=== PATIENT | male | born 1950 | race Caucasian/White ===

== ENCOUNTER 2018-11-04 13:56 | Inpatient (IN) | payer MEDICARE, OTHER ==
[~2018-11-04] VITALS: Ht 185.4 cm; Wt 90.1 kg
[2018-11-04] MEDS ORDERED: CLINDAMYCIN 900 MG/D5W (PMX) 50 ML IVPB STA (16:58)
[2018-11-04] MEDS ORDERED: SODIUM CHLORIDE 0.9% 1L BAG IV* STA (16:58)
[2018-11-04] MEDS ORDERED: ACETAMINOPHEN 325 MG TAB PO STA (16:58)
[2018-11-04] MEDS ORDERED: morphine 4 MG/ML VIAL IV STA (16:58)
[2018-11-04] MEDS ORDERED: ONDANSETRON 4 MG INJ IV STA (16:58)
[2018-11-04] MEDS ORDERED: PIPER-TAZO 3.375 GM IV (PMX) 100 ML IVPB STA (16:58)
[2018-11-04] MEDS ORDERED: VANCOMYCIN 1 GM (PMX) 250 ML IVPB STA (16:58)
--- NOTE | 2018-11-04 17:40 | ERD ---
ER Documentation Chief Complaint Chief Complaint RIGHT LEG SWELLING SINCE FRIDAY, FEVER HPI Very pleasant 68-year-old diabetic male who presents to the emergency room with approximately 5 days of right lower extremity swelling erythema warmth and tenderness. Pain is moderate, throbbing and 5 out of 10. He denies fevers but does have a fever here. No recent trauma or injury. No chest pain or pleuritic pain or history of DVT. ROS All systems reviewed and are negative except as per history of present illness. Medications Home Meds Reported Medications Lisinopril* (Lisinopril*) 40 Mg Tablet, 40 MG PO DAILY, #30 TAB 11/04/18 Sitagliptin Phos/Metformin HCl (Janumet 50-1,000 mg Tablet) 1 Each Tablet, 1 EACH PO BID, TAB 11/04/18 Allergies Allergies: Uncoded Allergies: OKRA (Allergy, Unknown, 11/04/18) FmHx Family History: No diabetes Physical Exam Vitals Vital Signs Date Temp Pulse Resp B/P (MAP) Pulse Ox O2 O2 Flow FiO2 Time Delivery Rate 11/04/18 99.9 63 21 108/51 97 Room Air 18:59 (70) 11/04/18 101.0 17:35 11/04/18 101.0 83 25 146/67 97 14:02 (93) Physical Exam General: Well developed, well nourished, no acute distress Head: Normocephalic, atraumatic. Eyes: Pupils equally reactive, EOM intact ENT: Moist mucous membranes Neck: Supple, no lymphadenopathy Respiratory: Lungs clear bilaterally, no distress Cardiovascular: RRR, no murmurs, rubs, or gallops Abdominal: Soft, non-tender, non-distended, no peritoneal signs : Deferred MSK: Right lower extremity has unilateral swelling erythema warmth and tenderness with streaking to the medial aspect of the right knee. 2+ dorsalis pedis pulses. No crepitus noted. No bullae. Neurologic: Alert and oriented, moving all extremities, normal speech, no focal weakness, no cerebellar signs Skin: As noted above Psych: Normal mood Result Diagram: 11/04/18 1700 11/04/18 1700 Results 24 hrs Laboratory Tests Test 11/04/18 17:00 11/04/18 17:19 White Blood Count 17.6 10^3/ul Red Blood Count 4.60 10^6/ul Hemoglobin 14.7 g/dl Hematocrit 43.0 % Mean Corpuscular Volume 93.5 fl Mean Corpuscular Hemoglobin 32.0 pg Mean Corpuscular Hemoglobin Concent 34.2 g/dl Red Cell Distribution Width 14.3 % Platelet Count 138 10^3/UL Mean Platelet Volume 13.1 fl Immature Granulocytes % 0.800 % Neutrophils % 85.1 % Lymphocytes % 4.4 % Monocytes % 9.0 % Eosinophils % 0.2 % Basophils % 0.5 % Nucleated Red Blood Cells % 0.0 /100WBC Immature Granulocytes # 0.140 10^3/ul Neutrophils # 15.0 10^3/ul Lymphocytes # 0.8 10^3/ul Monocytes # 1.6 10^3/ul Eosinophils # 0.0 10^3/ul Basophils # 0.1 10^3/ul Nucleated Red Blood Cells # 0.0 10^3/ul Erythrocyte Sedimentation Rate 69 mm/Hr Sodium Level 137 mmol/L Potassium Level 4.1 mmol/L Chloride Level 103 mmol/L Carbon Dioxide Level 22 mmol/L Anion Gap 12 Blood Urea Nitrogen 26 mg/dl Creatinine 1.02 mg/dl Est Glomerular Filtrat Rate mL/min > 60 mL/min Glucose Level 227 mg/dl Calcium Level 8.3 mg/dl C-Reactive Protein 8.4 mg/dl POC Venous Lactate 2.9 mmol/L Current Medications Medications Dose Sig/Forrest Start Time Status Last (Trade) Ordered Route PRN Stop Time Admin Dose Reason Admin Sodium 2,660 ml BOLUS OVER 2 11/04/18 DC 11/04/18 Chloride HOURS STAT 16:58 17:24 (NS) IV* 11/04/18 17:01 650 mg ONCE STAT 11/04/18 DC 11/04/18 Acetaminophen PO 16:58 17:35 (Tylenol 11/04/18 17:01 Tab) Morphine 4 mg ONCE STAT 11/04/18 DC 11/04/18 Sulfate IV 16:58 17:24 (morphine) 11/04/18 17:01 Ondansetron 4 mg ONCE STAT 11/04/18 DC 11/04/18 HCl (Zofran IV 16:58 17:23 Inj) 11/04/18 17:01 Vancomycin 250 ml @ ONCE STAT 11/04/18 DC 11/04/18 HCl 125 mls/hr IVPB 16:58 18:56 11/04/18 18:57 Clindamycin 50 ml @ 50 ONCE STAT 11/04/18 DC 11/04/18 HCl/ mls/hr IVPB 16:58 18:04 Dextrose 11/04/18 17:57 Piperacillin 100 ml @ ONCE STAT 11/04/18 DC 11/04/18 Sod/ 200 mls/hr IVPB 16:58 17:24 Tazobactam 11/04/18 17:27 Sod Ondansetron 4 mg BRIDGE ORDER 11/04/18 HCl (Zofran PRN IV 18:30 Inj) NAUSEA/VOMITI 11/05/18 18:29 NG 650 mg ER BRIDGE 11/04/18 Acetaminophen PRN PO 18:30 (Tylenol .MILD PAIN 11/05/18 18:29 Tab) 1-3 OR TEMP Lisinopril 40 mg DAILY PO 11/05/18 (Zestril) 09:00 Sodium 1,000 ml @ Q10H IV 11/04/18 Chloride 100 mls/hr 18:28 11/05/18 04:27 IV Flush 3 ml PER 11/04/18 (NS 3 ml) PROTOCOL IV 18:30 Ondansetron 4 mg Q6H PRN 11/04/18 HCl (Zofran IV 18:30 Inj) NAUSEA/VOMITI NG 650 mg Q6H PRN 11/04/18 Acetaminophen PO .PAIN 1-3 18:30 (Tylenol OR TEMP Tab) 1 tab Q6H PRN 11/04/18 Acetaminophen PO .MOD PAIN 18:30 / 4-6 Hydrocodone Bitart ([place] (5/325)) 2 tab Q6H PRN 11/04/18 Acetaminophen PO .SEVERE 18:30 / PAIN 7-10 Hydrocodone Bitart ([place] (5/325)) Morphine 2 mg Q4H PRN 11/04/18 Sulfate IV .SEVERE 18:30 (morphine) PAIN 7-10 Docusate 100 mg Q12H PRN 11/04/18 Sodium PO 18:30 (Colace) .CONSTIPATION Magnesium 30 ml DAILY PRN 11/04/18 Hydroxide PO 18:30 (Milk Of Mag) .CONSTIPATION 40 mg DAILY@06 11/05/18 Pantoprazole PO 06:00 (Protonix Tab) Enoxaparin 40 mg DAILY SC 6/13/19 Sodium 09:00 (Lovenox) Vancomycin 1 ea NOTE XX 11/04/18 DC HCl (Vanco 18:30 Iv Per 11/04/18 18:46 Pharmacy) Piperacillin 100 ml @ Q8 IVPB 11/04/18 DC Sod/ 200 mls/hr 22:00 Tazobactam 11/04/18 22:00 Sod Piperacillin 100 ml @ Q8 IVPB 11/04/18 Sod/ 200 mls/hr 22:00 Tazobactam Sod Vancomycin 1 ea NOTE XX 11/04/18 UNV HCl (Vanco 19:00 Iv Per Pharmacy) Discontinue ONCE ONCE 11/04/18 DC Miscellaneous current oral XX 19:00 sulfonylur... 11/04/18 19:09 Information (* Miscellaneous Pharmacy Order) ONCE ONCE 11/04/18 UNV Miscellaneous HYPOGLYCEMIA XX 19:00 PROTOCOL 11/04/18 19:01 Information w... (* Miscellaneous Pharmacy Order) Insulin NOVOLOG WITH MEALS 11/04/18 Aspart *MILD* BEDTIME SC 21:00 (Novolog ALGORITHM Insulin Pen) Discontinue ONCE ONCE 11/04/18 DC Miscellaneous all previ... XX 19:00 11/04/18 19:10 Information (* Miscellaneous Pharmacy Order) 250 ml @ ONCE IVPB 11/04/18 Vancomycin/So 125 mls/hr 21:00 dium 11/04/18 22:59 Chloride 1 ea NOTE XX 11/04/18 Miscellaneous 19:30 Information Glucose 15 gm Q15M PRN 11/04/18 (Glutose) PO DECREASED 19:30 GLUCOSE Glucose 22.5 gm Q15M PRN 11/04/18 (Glutose) PO DECREASED 19:30 GLUCOSE Dextrose 25 ml Q15M PRN 11/04/18 (D50w IV DECREASED 19:30 Syringe) GLUCOSE Dextrose 50 ml Q15M PRN 11/04/18 (D50w IV DECREASED 19:30 Syringe) GLUCOSE Glucagon 1 mg Q15M PRN 11/04/18 (Glucagen) IM DECREASED 19:30 GLUCOSE Glucose 15 gm Q15M PRN 11/04/18 (Glutose) BUCCAL 19:30 DECREASED GLUCOSE Procedures/MDM EKG, MONITORS, & DIAGNOSTIC IMAGING: US RLE: No evidence of DVT XR right tib/fib No evidence of acute process per radiologist read LAB INTERPRETATION: I reviewed the laboratory testing and it shows WBC elevation and Lactate elevation MEDICAL DECISION MAKING: Patient presents to the emergency room with evidence of right lower extremity cellulitis. Patient has a fever in triage but no other sirs criteria. Patient has sepsis screening initiated in the emergency room setting given concern for cellulitis that warrants hospitalization and IV antibiotics. No clinical signs or symptoms concerning for necrotizing fasciitis given now 5 days of symptoms. Screening will be initiated with ESR CRP. Low concern for osteomyelitis as well. Broad-spectrum antibiotics indicated. ER COURSE: * Patient's white count now shows evidence of 2 out of 4 Sirs criteria with po ssible source. The patient is being treated appropriately for sepsis including a 30 cc/kg bolus of saline, broad-spectrum antibiotics after blood cultures. * Patient remains hemodynamically stable. CONSULTATION: None DISPOSITION PLAN: Accepting care team and consultations: I discussed the current laboratory data, diagnostic imaging and emergency care provided. Admitting team: Dr. Zee Admitting team indication: Insurance directed Sepsis Documentation: Patient's infectious symptoms have not stabilized and the patient is at risk of rapid decompensation. The patient will be admitted for careful hydration, antibiotic therapy, and infectious source control. SEVERE SEPSIS CRITERIA: Infectious source: Right lower extremity cellulitis End organ damage indicated by: [Lactate > 2.0 mmol/L SEPSIS MANAGEMENT Time of recognition of sepsis: 5:19 PM. Time of recognition of severe sepsis: 5:19 PM. Time of recognition of septic shock: No septic shock at this time. 3 HOUR BUNDLE Blood cultures x 2 before broad-spectrum antibiotics: Yes 30 ml/kg NS bolus completed Initial lactate 2.9 Repeat lactate PENDING SEPTIC SHOCK ASSESSMENT: No lactic acid > 4.0 No persistent hypotension (SBP < 90 or 40 mmHg drop, MAP < 65) despite 30 mL/kg IV fluid bolus VOLUME REASSESSMENT FOR SEPTIC SHOCK: The patient does not meet criteria for septic shock in the emergency department at this time PERSISTENT HYPOTENSION TREATMENT: Comfort care no Central line not Required Vasopressor started not required I considered further perfusion assessment with CVP measurement, SCVO2, bedside ultrasound volume assessment, passive leg raise, trial of further fluid bolus. And proceeded with 30 ml/kg fluid bolus of NSS, broad spectrum antibiotics, and admission. CRITICAL CARE Critical care time 35 minutes Emergent fluid management while maintaining close respiratory support. Provision of immediate and broad-spectrum antibiotic therapy. Simultaneous assessment for possible sources in order to direct targeted therapy. Consideration for invasive and chemical support to prevent cardiopulmonary collapse. Critical care time is independent of procedures performed. Departure Diagnosis: Primary Impression: Cellulitis of right lower extremity Additional Impression: Severe sepsis Condition: Stable NITHIN SCHMITZ MD Nov 04, 2018 17:40
[2018-11-04] MEDS ORDERED: SITA1TAB5 PO (17:44)
[2018-11-04] MEDS ORDERED: LISI40TA3 PO (17:44)
[2018-11-04] MEDS ORDERED: SOD CHLORIDE 0.9% 1,000 ML IV SCH (18:28)
[2018-11-04] MEDS ORDERED: ONDANSETRON 4 MG INJ IV PRN ×2 (18:30)
[2018-11-04] MEDS ORDERED: NACL 0.9% 3 ML SYG IV SCH (18:30)
[2018-11-04] MEDS ORDERED: ACETAMINOPHEN 325 MG TAB PO PRN ×2 (18:30)
[2018-11-04] MEDS ORDERED: HYDROCODONE/APAP (5/325) TAB PO PRN (18:30)
[2018-11-04] MEDS ORDERED: VANCOMYCIN IV PER PHARMACY XX SCH ×2 (18:30→19:00)
[2018-11-04] MEDS ORDERED: MAGNESIUM HYDROXIDE 30ML CUP PO PRN (18:30)
[2018-11-04] MEDS ORDERED: DOCUSATE SODIUM 100 MG CAP PO PRN (18:30)
--- NOTE | 2018-11-04 19:03 | HP ---
Date/Time of Note Date/Time of Note DATE: 11/04/18 TIME: 18:54 Assessment/Plan VTE Prophylaxis SCD applied (from Nsg): Yes Pharmacological prophylaxis: LMWH Lines/Catheters IV Catheter Type (from Nrsg): Peripheral IV Assessment/Plan Assessment/Plan 1. Sepsis secondary to right lower extremity cellulitis - Will start broad spectrum antibiotics and ID consulted for further recommendations - Wound care consulted - Wound culture ordered - Xray noted with soft tissue swelling but no gas or OM - US negative for DVT - pain control - LA elevated and will continue IVF and trend 2. Diabetes Mellitus - will check A1c - hold PO medications - ISS and accuchecks 3. HTN - continue home lisinopril - will adjust if needed 4. Diet - Carb controlled 5. DVT - LMWH 6. Disposition - Admit to med/surg for treatment of sepsis secondary to cellulitis. Patient will require IV antibiotics given appearance of wound and RLE. Result Diagram: 11/04/18 1700 11/04/18 1700 Results 24hrs Laboratory Tests Test 11/04/18 17:00 11/04/18 17:19 White Blood Count 17.6 H Red Blood Count 4.60 L Hemoglobin 14.7 Hematocrit 43.0 Mean Corpuscular Volume 93.5 Mean Corpuscular Hemoglobin 32.0 Mean Corpuscular Hemoglobin Concent 34.2 Red Cell Distribution Width 14.3 Platelet Count 138 L Mean Platelet Volume 13.1 H Immature Granulocytes % 0.800 H Neutrophils % 85.1 H Lymphocytes % 4.4 L Monocytes % 9.0 Eosinophils % 0.2 Basophils % 0.5 Nucleated Red Blood Cells % 0.0 Immature Granulocytes # 0.140 H Neutrophils # 15.0 H Lymphocytes # 0.8 Monocytes # 1.6 H Eosinophils # 0.0 Basophils # 0.1 Nucleated Red Blood Cells # 0.0 Erythrocyte Sedimentation Rate 69 H Sodium Level 137 Potassium Level 4.1 Chloride Level 103 Carbon Dioxide Level 22 Anion Gap 12 Blood Urea Nitrogen 26 H Creatinine 1.02 Est Glomerular Filtrat Rate mL/min > 60 Glucose Level 227 H Calcium Level 8.3 L C-Reactive Protein 8.4 H POC Venous Lactate 2.9 *H HPI/ROS Admit Date/Time Admit Date/Time 11/04/18 Hx of Present Illness 68 yo M with PMH diabetes mellitus and HTN presents to the ED with worsening right lower extremity swelling for the past 5-6 days. Patient described the pain as moderate in nature, throbbing, and localized to RLE. He believes he scraped the area on his bike and has not gotten better. He admits to associated fevers, but denies any headaches, dizziness, chest pain, shortness of breath, or numbness LE. Denies any abdominal or issues. ROS All 12 systems reviewed and pertinent positives as per HPI. All others negative. Constitutional: febrile; No chills, No nausea Eyes: No discharge ENT: No congestion Respiratory: No cough, No shortness of breath, No sputum, No wheezing Cardiovascular: No chest pain, No lightheadedness, No palpitations Gastrointestinal: No pain, No constipation, No diarrhea, No nausea, No vomiting Genitourinary: no complaints Musculoskeletal: other (right lower extremity pain and swelling) Skin: erythema, laceration, skin lesions Neurologic: no complaints Endocrine: no complaints Lymphatic: no complaints Psychological: nl mood/affect Immunologic: no complaints PMH/Family/Social Past Medical History Medical History: diabetes, hypertension Medications Current Medications Vancomycin HCl 250 ml @ 125 mls/hr ONCE STAT IVPB ; Start 11/04/18 at 16:58; Stop 11/04/18 at 18:57 Ondansetron HCl (Zofran Inj) 4 mg BRIDGE ORDER PRN IV NAUSEA/VOMITING; Start 11/04/18 at 18:30; Stop 11/05/18 at 18:29 Acetaminophen (Tylenol Tab) 650 mg ER BRIDGE PRN PO .MILD PAIN 1-3 OR TEMP; Start 11/04/18 at 18:30; Stop 11/05/18 at 18:29 Lisinopril (Zestril) 40 mg DAILY PO ; Start 11/05/18 at 09:00 Sodium Chloride 1,000 ml @ 100 mls/hr Q10H IV ; Start 11/04/18 at 18:28; Stop 11/05/18 at 04:27 IV Flush (NS 3 ml) 3 ml PER PROTOCOL IV ; Start 11/04/18 at 18:30 Ondansetron HCl (Zofran Inj) 4 mg Q6H PRN IV NAUSEA/VOMITING; Start 11/04/18 at 18:30 Acetaminophen (Tylenol Tab) 650 mg Q6H PRN PO .PAIN 1-3 OR TEMP; Start 11/04/18 at 18:30 Acetaminophen/ Hydrocodone Bitart ([place] (5/325)) 1 tab Q6H PRN PO .MOD PAIN 4- 6; Start 11/04/18 at 18:30 Acetaminophen/ Hydrocodone Bitart ([place] (5/325)) 2 tab Q6H PRN PO .SEVERE PAIN 7-10; Start 11/04/18 at 18:30 Morphine Sulfate (morphine) 2 mg Q4H PRN IV .SEVERE PAIN 7-10; Start 11/04/18 at 18:30 Docusate Sodium (Colace) 100 mg Q12H PRN PO .CONSTIPATION; Start 11/04/18 at 18:30 Magnesium Hydroxide (Milk Of Mag) 30 ml DAILY PRN PO .CONSTIPATION; Start 11/04/18 at 18:30 Pantoprazole (Protonix Tab) 40 mg DAILY@06 PO ; Start 11/05/18 at 06:00 Enoxaparin Sodium (Lovenox) 40 mg DAILY SC ; Start 11/05/18 at 09:00; Status UNV Piperacillin Sod/ Tazobactam Sod 100 ml @ 200 mls/hr Q8 IVPB ; Start 11/04/18 at 22:00; Status UNV Vancomycin HCl (Vanco Iv Per Pharmacy) 1 ea NOTE XX ; Start 11/04/18 at 19:00; Status UNV Uncoded Allergies: OKRA (Allergy, Unknown, 11/04/18) Past Surgical History Past Surgical Hx: no surgical history Family History Significant Family History: no pertinent family hx Social History Alcohol Use: none Smoking Status: Never smoker Drug Use: none Exam/Review of Systems Vital Signs Vitals Vital Signs Date Temp Pulse Resp B/P (MAP) Pulse Ox O2 O2 Flow FiO2 Time Delivery Rate 11/04/18 101.0 17:35 11/04/18 83 25 146/67 97 14:02 (93) Exam Exam General: Patient currently lying in bed in no acute distress, answering questions appropriately. HEENT: Atraumatic, normocephalic. The pupils are equal, round and reactive. Extraocular motor are intact Neck: Supple with full range of motion. No rigidity or meningismus Chest: Nontender Lungs: Clear to auscultation bilaterally no crackles rales or wheezing Heart: Normal S1-S2, Regular rhythm and rate. No murmur, S3, or S4 Abdomen: Soft , nontender, nondistended , bowel sounds are present. No guarding no rebound tenderness , No masses or organomegaly. No costovertebral temporal angle mass Extremities: swelling of right lower extremity with erythema and tenderness to palpation extending from knee including the entire foot. Neurologic: Normal mental status, speech normal, cranial nerves II through XII are intact, motor and sensory are intact, Skin: medial wound with purulent discharge R calf. erythema and warmth appreciated from knee to foot. Additional Comments Home medications reviewed PROCEDURE: Ultrasound of the right lower extremity venous system. CLINICAL INDICATION: Right leg pain and swelling, deep venous thrombosis TECHNIQUE: [place] scale with and without compression, color doppler, spectral doppler of the venous system of the right lower extremity was performed. Venous augmentation maneuvers were utilized. COMPARISON: No prior studies are available for comparison. FINDINGS: Common femoral vein: Patent. Femoral vein: Patent. Popliteal vein: Patent. Calf veins: Patent. Subcutaneous edema present distally. IMPRESSION: No evidence of a deep vein thrombosis within the right lower extremity. RPTAT: AADD .Deniz Leyva MD, MD Date Time Electronically viewed and signed by .Deniz Leyva MD, MD on 11/04/2018 17:49 PROCEDURE: Right tibia and fibula x-ray CLINICAL INDICATION: screen for oseto/necrotizing process TECHNIQUE: AP, lateral views of the tibia and fibula were obtained. COMPARISON: None FINDINGS: No evidence of acute fracture. No dislocation. Mild arthrosis of the knee and ankle joints with marginal osteophyte formation. Severe soft tissue swelling. Anterior soft tissue calcifications. No evidence of soft tissue gas. No definite erosive changes to suggest acute osteomyelitis. IMPRESSION: Severe soft tissue swelling without radiographic evidence of osteomyelitis, or soft tissue gas. RPTAT:AAJJ Physician Graeme Date Time Electronically viewed and signed by Karlee Menezes Physician on 11/04/2018 17:30 DOLLY GARCIA MD Nov 04, 2018 19:03
[2018-11-04] MEDS ORDERED: GLUCOSE GEL 15 GRAM TUBE PO PRN ×2 (19:30)
[2018-11-04] MEDS ORDERED: GLUCAGON 1 MG INJ IM PRN (19:30)
[2018-11-04] MEDS ORDERED: GLUCOSE GEL 15 GRAM TUBE BUCCAL PRN (19:30)
[2018-11-04] MEDS ORDERED: DEXTROSE 50% 50 ML SYRINGE IV PRN ×2 (19:30)
[2018-11-04] MEDS: INSULIN ASPART [NOVOLOG] 3 ML PEN SC SCH (21:00)
[2018-11-04] MEDS ORDERED: VANCOMYCIN 750 MG (PMX) 250 ML IVPB SCH (21:00)
--- NOTE | 2018-11-04 21:31 | CONS ---
DATE OF ADMISSION: 11/04/2018 DATE OF CONSULTATION: 11/04/2018 TYPE OF CONSULTATION: Infectious Disease REASON FOR CONSULTATION: Antibiotic management. HISTORY OF PRESENT ILLNESS: Sammy Benavides is a 68-year-old male with history of diabetes who comes in with right leg swelling since Friday, three days prior to admission. The patient notes that he pr esented to the Emergency Room with approximately five days of right lower extremity swelling, erythem a, warmth and tenderness. Pain is moderate, 5/10 and throbbing. He denies fever, but in the Emergen cy Room his temperature was up to 101. HE HAS A HISTORY OF ALLERGY TO [facility]. On admission, his white count was 17.6, H and H 14.7 and 33, platelet count 138,000, BUN and creatinine 26/1.02, glucose ran dom 227 with 85% neutrophils. FAMILY HISTORY: Positive for diabetes and hypertension. FAMILY HISTORY: Noncontributory. SOCIAL HISTORY: He does not smoke, drink or abuse drugs. ALLERGIES: NONE TO PENICILLIN, SULFA OR FOODS. MEDICATIONS: Per chart. REVIEW OF SYSTEMS: As per HPI. PHYSICAL EXAMINATION: GENERAL: The patient is lying in bed in no acute distress. VITAL SIGNS: Stable. He is afebrile. SKIN: Without generalized rash. HEENT: Within normal limits. NECK: Supple. LYMPH NODES: None palpable. CHEST: Decreased breath sounds at the bases. HEART: Without murmur or gallop. ABDOMEN: Soft, nontender, without organosplenomegaly or masses. EXTREMITIES: He has swelling of the right lower extremity with erythema and tenderness to palpation from the knee down to the entire foot. RECTAL AND GENITAL: Deferred. NEUROLOGIC: No focal neurological abnormality. DIAGNOSTIC DATA: Ultrasound of the right lower extremity shows no evidence of deep vein thrombophleb itis. X-ray of the tibia and fibula: Severe soft tissue swelling without radiographic evidence of o steomyelitis or soft tissue gas. IMPRESSION AND PLAN: The patient was started on broad spectrum antibiotics. He is currently on vanc omycin and Zosyn. I will dictate my findings to the hospitalist. Dictated By: JOSE DANIEL FERNANDEZ MD, JD/TIM Conf#: [id number] DID#: [id number]
[2018-11-04 21:43] VITALS: BP 138/64; PULSE 60; RESP 17
[2018-11-04 21:45] VITALS: Ht 185.4 cm; Wt 90.1 kg
[2018-11-04] MEDS ORDERED: PIPER-TAZO 3.375 GM IV (PMX) 100 ML IVPB SCH (22:00)
[2018-11-04] MEDS ORDERED: SOD CHLORIDE 0.9% 500 ML IV ONE (23:00)
[2018-11-05] MEDS: PIPER-TAZO 3.375 GM IV (PMX) 100 ML IVPB SCH ×4 (00:09→21:06)
[2018-11-05] MEDS: HYDROCODONE/APAP (5/325) TAB PO PRN ×2 (01:00→08:35)
[2018-11-05 01:45] VITALS: BP 104/51; PULSE 61; RESP 18
[2018-11-05] MEDS: PANTOPRAZOLE (EC) 40 MG TAB PO SCH (05:35)
[2018-11-05 08:00] VITALS: BP 106/59; PULSE 69; RESP 18
[2018-11-05] MEDS: INSULIN ASPART [NOVOLOG] 3 ML PEN SC SCH ×4 (08:00→21:00)
[2018-11-05] MEDS: ENOXAPARIN 40 MG/0.4 ML SYG SC SCH (08:15)
[2018-11-05] MEDS: LISINOPRIL 20 MG TAB PO SCH (08:18)
[2018-11-05] MEDS: VANCOMYCIN 1 GM 250 ML IVPB SCH ×2 (11:24→23:05)
--- NOTE | 2018-11-05 11:40 | PN ---
Date/Time of Note Date/Time of Note DATE: 11/05/18 TIME: 11:34 Assessment/Plan VTE Prophylaxis Risk score (from Nsg)>0 risk: 4 SCD applied (from Nsg): Yes Pharmacological prophylaxis: LMWH Lines/Catheters IV Catheter Type (from Nrsg): Peripheral IV Urinary Cath still in place: No Assessment/Plan Hospital Course SUBJECTIVE: Lying in bed, having increased swelling on right lower extremity. No fevers OBJECTIVE: Vital signs-see below PHYSICAL EXAM: Constitutional: Adequately built,not in acute distress. HEENT: Head atraumatic and normocephalic. Eyes: Extraocular muscles intact. Anicteric sclerae. Pupils equal bilaterally, reactive to light. NECK: Supple without lymph node. CHEST: Clear and good breath sounds equally. No wheezing. No rhonchi. HEART: S1, S2. Regular rate and rhythm. ABDOMEN: Soft/non tender with no rebound tenderness. Bowel sounds were present. EXTREMITIES: RLE W/ pain/erythema/swelling. NEUROLOGIC: Alert and oriented x3. No focal deficit. No sensory deficit. PSYCHOSOCIAL: No signs of depression. INTEGUMENTARY: No open wounds. ASSESSMENT AND PLAN:68 yo M w/dm2,htn here w/RLE cellulitisx4 days Sepsis secondary to right lower extremity cellulitis - cont. broad-spectrum antibiotics and await for cultures Right lower extremity cellulitis -Venous duplex negative for DVT. We will proceed with a CT RLE secondary to worsening edema/pain -Continue to elevate RLE, pain control, antibiotics -Wound care/wound cultures DMII -Basal/bolus insulin -a1c Hypertension -Stable. Continue lisinopril Diet - Carb controlled DVT - LMWH Disposition-continue antibiotics. Follow-up cultures. Follow-up CT findings. Patient was seen in collaboration with Dr. Zee. Result Diagram: 11/05/18 0459 11/05/18 0459 Results 24hrs Laboratory Tests Test 11/04/18 17:00 11/04/18 17:19 11/04/18 18:47 11/04/18 18:52 White Blood Count 17.6 H Red Blood Count 4.60 L Hemoglobin 14.7 Hematocrit 43.0 Mean Corpuscular 93.5 Volume Mean Corpuscular 32.0 Hemoglobin Mean Corpuscular 34.2 Hemoglobin Concent Red Cell 14.3 Distribution Width Platelet Count 138 L Mean Platelet Volume 13.1 H Immature 0.800 H Granulocytes % Neutrophils % 85.1 H Lymphocytes % 4.4 L Monocytes % 9.0 Eosinophils % 0.2 Basophils % 0.5 Nucleated Red Blood 0.0 Cells % Immature 0.140 H Granulocytes # Neutrophils # 15.0 H Lymphocytes # 0.8 Monocytes # 1.6 H Eosinophils # 0.0 Basophils # 0.1 Nucleated Red Blood 0.0 Cells # Erythrocyte 69 H Sedimentation Rate Sodium Level 137 Potassium Level 4.1 Chloride Level 103 Carbon Dioxide Level 22 Anion Gap 12 Blood Urea Nitrogen 26 H Creatinine 1.02 Est Glomerular > 60 Filtrat Rate mL/min Glucose Level 227 H Calcium Level 8.3 L C-Reactive Protein 8.4 H POC Venous Lactate 2.9 *H Lactic Acid Level 2.0 Hemoglobin A1c 5.6 Test 11/04/18 21:53 11/04/18 22:04 11/05/18 04:59 11/05/18 08:13 Bedside Glucose 158 115 Lactic Acid Level 2.1 *H 2.0 White Blood Count 11.1 #H Red Blood Count 3.67 #L Hemoglobin 11.6 #L Hematocrit 34.6 L Mean Corpuscular 94.3 Volume Mean Corpuscular 31.6 Hemoglobin Mean Corpuscular 33.5 Hemoglobin Concent Red Cell 14.5 Distribution Width Platelet Count 74 #L Mean Platelet Volume 13.4 H Immature 0.500 H Granulocytes % Neutrophils % Segmented 60 Neutrophils % (Manual) Band Neutrophils % 27 H (Manual) Lymphocytes % Lymphocytes % 5 L (Manual) Monocytes % Monocytes % (Manual) 6 Eosinophils % Eosinophils % 1 (Manual) Basophils % Promyelocytes % 1 H (Manual) Nucleated Red Blood 0.0 Cells % Immature 0.060 H Granulocytes # Neutrophils # Neutrophils # 7.0 (Manual) Band Neutrophils # 2.9 H Lymphocytes (Manual) 0.5 L Lymphocytes # Monocytes # Monocytes # (Manual) 0.6 Eosinophils # Basophils # Promyelocytes # 0.1 H Nucleated Red Blood Cells # Platelet Estimate DECREASED Giant Platelets 3 H Poikilocytosis 3+ Sodium Level 136 Potassium Level 4.1 Chloride Level 111 H Carbon Dioxide Level 20 L Anion Gap 5 Blood Urea Nitrogen 27 H Creatinine 1.04 Est Glomerular > 60 Filtrat Rate mL/min Glucose Level 125 # Calcium Level 6.9 L Magnesium Level 1.7 Exam/Review of Systems Exam Vitals Vital Signs Date Temp Pulse Resp B/P (MAP) Pulse Ox O2 O2 Flow FiO2 Time Delivery Rate 11/05/18 98.4 61 18 104/51 94 01:45 (68) 11/04/18 Room Air 21:02 Intake and Output 11/04/18 11/04/18 11/05/18 1515:00 23:00 07:00 IntakeIntake Total 1550 ml OutputOutput Total 250 ml BalanceBalance 1300 ml Results Results 24hrs Laboratory Tests Test 11/04/18 17:00 11/04/18 17:19 11/04/18 18:47 11/04/18 18:52 White Blood Count 17.6 H Red Blood Count 4.60 L Hemoglobin 14.7 Hematocrit 43.0 Mean Corpuscular 93.5 Volume Mean Corpuscular 32.0 Hemoglobin Mean Corpuscular 34.2 Hemoglobin Concent Red Cell 14.3 Distribution Width Platelet Count 138 L Mean Platelet Volume 13.1 H Immature 0.800 H Granulocytes % Neutrophils % 85.1 H Lymphocytes % 4.4 L Monocytes % 9.0 Eosinophils % 0.2 Basophils % 0.5 Nucleated Red Blood 0.0 Cells % Immature 0.140 H Granulocytes # Neutrophils # 15.0 H Lymphocytes # 0.8 Monocytes # 1.6 H Eosinophils # 0.0 Basophils # 0.1 Nucleated Red Blood 0.0 Cells # Erythrocyte 69 H Sedimentation Rate Sodium Level 137 Potassium Level 4.1 Chloride Level 103 Carbon Dioxide Level 22 Anion Gap 12 Blood Urea Nitrogen 26 H Creatinine 1.02 Est Glomerular > 60 Filtrat Rate mL/min Glucose Level 227 H Calcium Level 8.3 L C-Reactive Protein 8.4 H POC Venous Lactate 2.9 *H Lactic Acid Level 2.0 Hemoglobin A1c 5.6 Test 11/04/18 21:53 11/04/18 22:04 11/05/18 04:59 11/05/18 08:13 Bedside Glucose 158 115 Lactic Acid Level 2.1 *H 2.0 White Blood Count 11.1 #H Red Blood Count 3.67 #L Hemoglobin 11.6 #L Hematocrit 34.6 L Mean Corpuscular 94.3 Volume Mean Corpuscular 31.6 Hemoglobin Mean Corpuscular 33.5 Hemoglobin Concent Red Cell 14.5 Distribution Width Platelet Count 74 #L Mean Platelet Volume 13.4 H Immature 0.500 H Granulocytes % Neutrophils % Segmented 60 Neutrophils % (Manual) Band Neutrophils % 27 H (Manual) Lymphocytes % Lymphocytes % 5 L (Manual) Monocytes % Monocytes % (Manual) 6 Eosinophils % Eosinophils % 1 (Manual) Basophils % Promyelocytes % 1 H (Manual) Nucleated Red Blood 0.0 Cells % Immature 0.060 H Granulocytes # Neutrophils # Neutrophils # 7.0 (Manual) Band Neutrophils # 2.9 H Lymphocytes (Manual) 0.5 L Lymphocytes # Monocytes # Monocytes # (Manual) 0.6 Eosinophils # Basophils # Promyelocytes # 0.1 H Nucleated Red Blood Cells # Platelet Estimate DECREASED Giant Platelets 3 H Poikilocytosis 3+ Sodium Level 136 Potassium Level 4.1 Chloride Level 111 H Carbon Dioxide Level 20 L Anion Gap 5 Blood Urea Nitrogen 27 H Creatinine 1.04 Est Glomerular > 60 Filtrat Rate mL/min Glucose Level 125 # Calcium Level 6.9 L Magnesium Level 1.7 Medications Medication Current Medications Lisinopril (Zestril) 40 mg DAILY PO Last administered on 11/05/18at 08:18; Admin Dose 40 MG; Start 11/05/18 at 09:00 IV Flush (NS 3 ml) 3 ml PER PROTOCOL IV ; Start 11/04/18 at 18:30 Ondansetron HCl (Zofran Inj) 4 mg Q6H PRN IV NAUSEA/VOMITING; Start 11/04/18 at 18:30 Acetaminophen (Tylenol Tab) 650 mg Q6H PRN PO .PAIN 1-3 OR TEMP; Start 11/04/18 at 18:30 Acetaminophen/ Hydrocodone Bitart ([place] (5/325)) 1 tab Q6H PRN PO .MOD PAIN 4- 6; Start 11/04/18 at 18:30 Acetaminophen/ Hydrocodone Bitart ([place] (5/325)) 2 tab Q6H PRN PO .SEVERE PAIN 7-10 Last administered on 11/05/18at 08:35; Admin Dose 2 TAB; Start 11/04/18 at 18:30 Morphine Sulfate (morphine) 2 mg Q4H PRN IV .SEVERE PAIN 7-10; Start 11/04/18 at 18:30 Docusate Sodium (Colace) 100 mg Q12H PRN PO .CONSTIPATION; Start 11/04/18 at 18:30 Magnesium Hydroxide (Milk Of Mag) 30 ml DAILY PRN PO .CONSTIPATION; Start 11/04/18 at 18:30 Pantoprazole (Protonix Tab) 40 mg DAILY@06 PO Last administered on 11/05/18at 05:35; Admin Dose 40 MG; Start 11/05/18 at 06:00 Enoxaparin Sodium (Lovenox) 40 mg DAILY SC Last administered on 11/05/18at 08:15; Admin Dose 40 MG; Start 11/05/18 at 09:00 Piperacillin Sod/ Tazobactam Sod 100 ml @ 200 mls/hr Q8 IVPB Last administered on 11/05/18at 05:35; Admin Dose 200 MLS/HR; Start 11/04/18 at 22:00 Vancomycin HCl (Vanco Iv Per Pharmacy) 1 ea NOTE XX ; Start 11/04/18 at 19:00 Insulin Aspart (Novolog Insulin Pen) NOVOLOG *MILD* ALGORITHM WITH MEALS BEDTIME SC ; Start 11/04/18 at 21:00 Miscellaneous Information 1 ea NOTE XX ; Start 11/04/18 at 19:30 Glucose (Glutose) 15 gm Q15M PRN PO DECREASED GLUCOSE; Start 11/04/18 at 19:30 Glucose (Glutose) 22.5 gm Q15M PRN PO DECREASED GLUCOSE; Start 11/04/18 at 19:30 Dextrose (D50w Syringe) 25 ml Q15M PRN IV DECREASED GLUCOSE; Start 11/04/18 at 19:30 Dextrose (D50w Syringe) 50 ml Q15M PRN IV DECREASED GLUCOSE; Start 11/04/18 at 19:30 Glucagon (Glucagen) 1 mg Q15M PRN IM DECREASED GLUCOSE; Start 11/04/18 at 19:30 Glucose (Glutose) 15 gm Q15M PRN BUCCAL DECREASED GLUCOSE; Start 11/04/18 at 19:30 Vancomycin HCl 250 ml @ 125 mls/hr Q12H IVPB Last administered on 11/05/18at 11:24; Admin Dose 125 MLS/HR; Start 11/05/18 at 11:00 Miscellaneous Information Patients own medicat... BID@10,16 XX ; Start 11/05/18 at 10:00 Miscellaneous Information (*Rx Drug Level Order Reminder*) VANCO TROUGH ON 10/24... 1000 ONCE XX ; Start 11/06/18 at 10:00; Stop 6/14/19 at 10:01 HIREN PERALTA NP Nov 05, 2018 11:40
[2018-11-05] MEDS: INSULIN GLARGINE [LANTus] (100 UNITS/ML) SYG SC SCH (12:31)
[2018-11-05 14:00] VITALS: BP 128/65; PULSE 64; RESP 17
--- NOTE | 2018-11-05 14:18 | CONS ---
Assessment/Plan Assessment/Plan Hospital Course (Demo Recall) Patient is alert looks comfortable denies pain, status post fever yesterday 101 today's afebrile. WBC 11.1 platelets 74 bands 27 BUN 27 creatinine 1.04. Ultrasound of right lower extremity revealed no evidence of DVT. X-ray showed no evidence of osteomyelitis or soft tissue gas Antimicrobials: Vancomycin, Zosyn Physical examination: This is a well-nourished well-developed elderly white man who is alert in no distress. Head atraumatic normocephalic sclera nonicteric vehicle mucosa dry neck is supple chest rise symmetrical breath sounds clear. Heart: S1-S2. Abdomen soft bowel sounds present. Extremities: Right lower extremity with significant swelling erythema bruising above knee. Patient has a open wound on the calf Assessment: 1. Sepsis, present on admission 2. Right lower extremity cellulitis status post trauma 3. Diabetes Plan: We are going to send blood cultures, swab nares for MRSA, trying to get a culture of the wound, continue antibiotics, keep right lower extremity elevated Consultation Date/Type/Reason Admit Date/Time Nov 04, 2018 at 18:28 Initial Consult Date Type of Consult id Date/Time of Note DATE: 11/05/18 TIME: 14:18 Exam/Review of Systems Exam Vitals Vital Signs Date Temp Pulse Resp B/P (MAP) Pulse Ox O2 O2 Flow FiO2 Time Delivery Rate 11/05/18 98.4 61 18 104/51 94 01:45 (68) 11/04/18 Room Air 21:02 Intake and Output 11/04/18 11/04/18 11/05/18 1515:00 23:00 07:00 IntakeIntake Total 1550 ml OutputOutput Total 250 ml BalanceBalance 1300 ml Results Result Diagram: 11/05/18 0459 11/05/18 0459 Results 24hrs Laboratory Tests Test 11/04/18 17:00 11/04/18 17:19 11/04/18 18:47 11/04/18 18:52 White Blood Count 17.6 H Red Blood Count 4.60 L Hemoglobin 14.7 Hematocrit 43.0 Mean Corpuscular 93.5 Volume Mean Corpuscular 32.0 Hemoglobin Mean Corpuscular 34.2 Hemoglobin Concent Red Cell 14.3 Distribution Width Platelet Count 138 L Mean Platelet Volume 13.1 H Immature 0.800 H Granulocytes % Neutrophils % 85.1 H Lymphocytes % 4.4 L Monocytes % 9.0 Eosinophils % 0.2 Basophils % 0.5 Nucleated Red Blood 0.0 Cells % Immature 0.140 H Granulocytes # Neutrophils # 15.0 H Lymphocytes # 0.8 Monocytes # 1.6 H Eosinophils # 0.0 Basophils # 0.1 Nucleated Red Blood 0.0 Cells # Erythrocyte 69 H Sedimentation Rate Sodium Level 137 Potassium Level 4.1 Chloride Level 103 Carbon Dioxide Level 22 Anion Gap 12 Blood Urea Nitrogen 26 H Creatinine 1.02 Est Glomerular > 60 Filtrat Rate mL/min Glucose Level 227 H Calcium Level 8.3 L C-Reactive Protein 8.4 H POC Venous Lactate 2.9 *H Lactic Acid Level 2.0 Hemoglobin A1c 5.6 Test 11/04/18 21:53 11/04/18 22:04 11/05/18 04:59 11/05/18 08:13 Bedside Glucose 158 115 Lactic Acid Level 2.1 *H 2.0 White Blood Count 11.1 #H Red Blood Count 3.67 #L Hemoglobin 11.6 #L Hematocrit 34.6 L Mean Corpuscular 94.3 Volume Mean Corpuscular 31.6 Hemoglobin Mean Corpuscular 33.5 Hemoglobin Concent Red Cell 14.5 Distribution Width Platelet Count 74 #L Mean Platelet Volume 13.4 H Immature 0.500 H Granulocytes % Neutrophils % Segmented 60 Neutrophils % (Manual) Band Neutrophils % 27 H (Manual) Lymphocytes % Lymphocytes % 5 L (Manual) Monocytes % Monocytes % (Manual) 6 Eosinophils % Eosinophils % 1 (Manual) Basophils % Promyelocytes % 1 H (Manual) Nucleated Red Blood 0.0 Cells % Immature 0.060 H Granulocytes # Neutrophils # Neutrophils # 7.0 (Manual) Band Neutrophils # 2.9 H Lymphocytes (Manual) 0.5 L Lymphocytes # Monocytes # Monocytes # (Manual) 0.6 Eosinophils # Basophils # Promyelocytes # 0.1 H Nucleated Red Blood Cells # Platelet Estimate DECREASED Giant Platelets 3 H Poikilocytosis 3+ Sodium Level 136 Potassium Level 4.1 Chloride Level 111 H Carbon Dioxide Level 20 L Anion Gap 5 Blood Urea Nitrogen 27 H Creatinine 1.04 Est Glomerular > 60 Filtrat Rate mL/min Glucose Level 125 # Hemoglobin A1c 5.6 Calcium Level 6.9 L Magnesium Level 1.7 Triglycerides Level 90 Cholesterol Level 89 L LDL Cholesterol, 53 Calculated HDL Cholesterol 18 L Cholesterol/HDL 4.9 Ratio Test 11/05/18 12:28 Bedside Glucose 169 Medications Medication Current Medications Lisinopril (Zestril) 40 mg DAILY PO Last administered on 11/05/18at 08:18; Admin Dose 40 MG; Start 11/05/18 at 09:00 IV Flush (NS 3 ml) 3 ml PER PROTOCOL IV ; Start 11/04/18 at 18:30 Ondansetron HCl (Zofran Inj) 4 mg Q6H PRN IV NAUSEA/VOMITING; Start 11/04/18 at 18:30 Acetaminophen (Tylenol Tab) 650 mg Q6H PRN PO .PAIN 1-3 OR TEMP; Start 11/04/18 at 18:30 Acetaminophen/ Hydrocodone Bitart ([place] (5/325)) 1 tab Q6H PRN PO .MOD PAIN 4- 6; Start 11/04/18 at 18:30 Acetaminophen/ Hydrocodone Bitart ([place] (5/325)) 2 tab Q6H PRN PO .SEVERE PAIN 7-10 Last administered on 11/05/18at 08:35; Admin Dose 2 TAB; Start 11/04/18 at 18:30 Morphine Sulfate (morphine) 2 mg Q4H PRN IV .SEVERE PAIN 7-10; Start 11/04/18 at 18:30 Docusate Sodium (Colace) 100 mg Q12H PRN PO .CONSTIPATION; Start 11/04/18 at 18:30 Magnesium Hydroxide (Milk Of Mag) 30 ml DAILY PRN PO .CONSTIPATION; Start 11/04/18 at 18:30 Pantoprazole (Protonix Tab) 40 mg DAILY@06 PO Last administered on 11/05/18at 05:35; Admin Dose 40 MG; Start 11/05/18 at 06:00 Enoxaparin Sodium (Lovenox) 40 mg DAILY SC Last administered on 11/05/18at 08:15; Admin Dose 40 MG; Start 11/05/18 at 09:00 Piperacillin Sod/ Tazobactam Sod 100 ml @ 200 mls/hr Q8 IVPB Last administered on 11/05/18at 13:21; Admin Dose 200 MLS/HR; Start 11/04/18 at 22:00 Vancomycin HCl (Vanco Iv Per Pharmacy) 1 ea NOTE XX ; Start 11/04/18 at 19:00 Insulin Aspart (Novolog Insulin Pen) NOVOLOG *MILD* ALGORITHM WITH MEALS BEDTIME SC Last administered on 11/05/18at 12:32; Admin Dose 1 UNIT; Start 11/04/18 at 21:00 Miscellaneous Information 1 ea NOTE XX ; Start 11/04/18 at 19:30 Glucose (Glutose) 15 gm Q15M PRN PO DECREASED GLUCOSE; Start 11/04/18 at 19:30 Glucose (Glutose) 22.5 gm Q15M PRN PO DECREASED GLUCOSE; Start 11/04/18 at 19:30 Dextrose (D50w Syringe) 25 ml Q15M PRN IV DECREASED GLUCOSE; Start 11/04/18 at 19:30 Dextrose (D50w Syringe) 50 ml Q15M PRN IV DECREASED GLUCOSE; Start 11/04/18 at 19:30 Glucagon (Glucagen) 1 mg Q15M PRN IM DECREASED GLUCOSE; Start 11/04/18 at 19:30 Glucose (Glutose) 15 gm Q15M PRN BUCCAL DECREASED GLUCOSE; Start 11/04/18 at 19:30 Vancomycin HCl 250 ml @ 125 mls/hr Q12H IVPB Last administered on 11/05/18at 11:24; Admin Dose 125 MLS/HR; Start 11/05/18 at 11:00 Miscellaneous Information Patients own medicat... BID@10,16 XX ; Start 11/05/18 at 10:00 Miscellaneous Information (*Rx Drug Level Order Reminder*) VANCO TROUGH ON 10/24... 1000 ONCE XX ; Start 11/06/18 at 10:00; Stop 11/06/18 at 10:01 Insulin Glargine (Lantus) 14 units DAILY@0800 SC ; Start 11/05/18 at 13:30 HEIDY CORTEZ NP Nov 05, 2018 14:18
[2018-11-05 20:00] VITALS: BP 112/55; PULSE 67; RESP 18
[2018-11-06 02:00] VITALS: BP 124/59; PULSE 62; RESP 17
[2018-11-06] MEDS: morphine 2 MG INJ IV PRN (05:32)
[2018-11-06] MEDS: PIPER-TAZO 3.375 GM IV (PMX) 100 ML IVPB SCH ×2 (05:35→15:00)
[2018-11-06] MEDS: PANTOPRAZOLE (EC) 40 MG TAB PO SCH (05:40)
[2018-11-06] MEDS: INSULIN ASPART [NOVOLOG] 3 ML PEN SC SCH ×4 (08:00→20:27)
[2018-11-06 08:14] VITALS: BP 123/58; PULSE 65; RESP 18
[2018-11-06] MEDS: LISINOPRIL 20 MG TAB PO SCH (08:41)
[2018-11-06] MEDS: ENOXAPARIN 40 MG/0.4 ML SYG SC SCH (08:42)
[2018-11-06] MEDS: INSULIN GLARGINE [LANTus] (100 UNITS/ML) SYG SC SCH (08:42)
--- NOTE | 2018-11-06 09:55 | PN ---
Date/Time of Note Date/Time of Note DATE: 11/06/18 TIME: 09:50 Assessment/Plan VTE Prophylaxis Risk score (from Ns)>0 risk: 5 SCD applied (from Ns): No SCD contraindicated: other Pharmacological prophylaxis: LMWH Lines/Catheters IV C[facility]ter Type (from [facility]): Peripheral IV Urinary Cath still in place: No Assessment/Plan Hospital Course SUBJECTIVE: Gradually improving right lower extremity redness/swelling. No further pain reported. OBJECTIVE: Vital signs-see below PHYSICAL EXAM: Constitutional: Adequately built,not in acute distress. HEENT: Head atraumatic and normocephalic. Eyes: Extraocular muscles intact. Anicteric sclerae. Pupils equal bilaterally, reactive to light. NECK: Supple without lymph node. CHEST: Clear and good breath sounds equally. No wheezing. No rhonchi. HEART: S1, S2. Regular rate and rhythm. ABDOMEN: Soft/non tender with no rebound tenderness. Bowel sounds were present. EXTREMITIES: RLE W/ pain/erythema/swelling. Having blisters. Left knee with eschar from healed boil. NEUROLOGIC: Alert and oriented x3. No focal deficit. No sensory deficit. PSYCHOSOCIAL: No signs of depression. INTEGUMENTARY: No open wounds. ASSESSMENT AND PLAN:68 yo M w/dm2,htn here w/RLE cellulitisx4 days Sepsis secondary to right lower extremity cellulitis - cont. broad-spectrum antibiotics and await for cultures Right lower extremity cellulitis w/ blister formation -No evidence of DVT. CT with no evidence of underlying abscess formation requiring surgical evaluation. -Go ahead with MRI evaluation to rule out osteomyelitis of underlying bones. -Continue to elevate RLE, pain control, antibiotics -Wound care/wound cultures DMII -controlled -Basal/bolus insulin Hypertension -Stable. Continue lisinopril Diet - Carb controlled DVT - LMWH Disposition-continue antibiotics. Follow-up cultures. Follow-up MRI findings. Patient was seen in collaboration with Dr. Zee. Result Diagram: 11/06/18 0454 11/06/18 0454 Results 24hrs Laboratory Tests Test 11/05/18 12:28 11/05/18 17:51 11/05/18 21:03 11/06/18 04:54 Bedside Glucose 169 175 173 White Blood Count 13.5 #H Red Blood Count 3.71 L Hemoglobin 11.8 L Hematocrit 34.8 L Mean Corpuscular 93.8 Volume Mean Corpuscular 31.8 Hemoglobin Mean Corpuscular 33.9 Hemoglobin Concent Red Cell 14.7 H Distribution Width Platelet Count 99 #L Mean Platelet Volume 13.6 H Immature 2.400 H Granulocytes % Neutrophils % Segmented 66 Neutrophils % (Manual) Band Neutrophils % 12 H (Manual) Lymphocytes % Lymphocytes % 10 L (Manual) Monocytes % Monocytes % (Manual) 7 Eosinophils % Basophils % Basophils % (Manual) 2 Myelocytes % 2 H (Manual) Promyelocytes % 1 H (Manual) Nucleated Red Blood 0.0 Cells % Immature 0.320 H Granulocytes # Neutrophils # Neutrophils # 9.1 H (Manual) Band Neutrophils # 1.6 H Lymphocytes (Manual) 1.3 Lymphocytes # Monocytes # Monocytes # (Manual) 0.9 Eosinophils # Basophils # Basophils # (Manual) 0.2 H Myelocytes # 0.2 H Promyelocytes # 0.1 H Nucleated Red Blood Cells # Platelet Estimate DECREASED Giant Platelets 1 H Poikilocytosis 3+ Sodium Level 135 Potassium Level 3.9 Chloride Level 109 Carbon Dioxide Level 21 Anion Gap 5 Blood Urea Nitrogen 34 H Creatinine 1.23 Est Glomerular 59 L Filtrat Rate mL/min Glucose Level 119 Calcium Level 7.3 L Test 11/06/18 07:55 Bedside Glucose 126 Exam/Review of Systems Exam Vitals Vital Signs Date Temp Pulse Resp B/P (MAP) Pulse Ox O2 O2 Flow FiO2 Time Delivery Rate 11/06/18 98.6 65 18 123/58 96 Room Air 08:14 (79) Intake and Output 11/05/18 11/05/18 11/06/18 1515:00 23:00 07:00 IntakeIntake Total 950 ml 500 ml 650 ml OutputOutput Total 700 ml 400 ml 800 ml BalanceBalance 250 ml 100 ml -150 ml Results Results 24hrs Laboratory Tests Test 11/05/18 12:28 11/05/18 17:51 11/05/18 21:03 11/06/18 04:54 Bedside Glucose 169 175 173 White Blood Count 13.5 #H Red Blood Count 3.71 L Hemoglobin 11.8 L Hematocrit 34.8 L Mean Corpuscular 93.8 Volume Mean Corpuscular 31.8 Hemoglobin Mean Corpuscular 33.9 Hemoglobin Concent Red Cell 14.7 H Distribution Width Platelet Count 99 #L Mean Platelet Volume 13.6 H Immature 2.400 H Granulocytes % Neutrophils % Segmented 66 Neutrophils % (Manual) Band Neutrophils % 12 H (Manual) Lymphocytes % Lymphocytes % 10 L (Manual) Monocytes % Monocytes % (Manual) 7 Eosinophils % Basophils % Basophils % (Manual) 2 Myelocytes % 2 H (Manual) Promyelocytes % 1 H (Manual) Nucleated Red Blood 0.0 Cells % Immature 0.320 H Granulocytes # Neutrophils # Neutrophils # 9.1 H (Manual) Band Neutrophils # 1.6 H Lymphocytes (Manual) 1.3 Lymphocytes # Monocytes # Monocytes # (Manual) 0.9 Eosinophils # Basophils # Basophils # (Manual) 0.2 H Myelocytes # 0.2 H Promyelocytes # 0.1 H Nucleated Red Blood Cells # Platelet Estimate DECREASED Giant Platelets 1 H Poikilocytosis 3+ Sodium Level 135 Potassium Level 3.9 Chloride Level 109 Carbon Dioxide Level 21 Anion Gap 5 Blood Urea Nitrogen 34 H Creatinine 1.23 Est Glomerular 59 L Filtrat Rate mL/min Glucose Level 119 Calcium Level 7.3 L Test 11/06/18 07:55 Bedside Glucose 126 Medications Medication Current Medications Lisinopril (Zestril) 40 mg DAILY PO Last administered on 11/06/18at 08:41; Admin Dose 40 MG; Start 11/05/18 at 09:00 IV Flush (NS 3 ml) 3 ml PER PROTOCOL IV ; Start 11/04/18 at 18:30 Ondansetron HCl (Zofran Inj) 4 mg Q6H PRN IV NAUSEA/VOMITING; Start 11/04/18 at 18:30 Acetaminophen (Tylenol Tab) 650 mg Q6H PRN PO .PAIN 1-3 OR TEMP; Start 11/04/18 at 18:30 Acetaminophen/ Hydrocodone Bitart ([place] (5/325)) 1 tab Q6H PRN PO .MOD PAIN 4- 6; Start 11/04/18 at 18:30 Acetaminophen/ Hydrocodone Bitart ([place] (5/325)) 2 tab Q6H PRN PO .SEVERE PAIN 7-10 Last administered on 11/05/18at 08:35; Admin Dose 2 TAB; Start 11/04/18 at 18:30 Morphine Sulfate (morphine) 2 mg Q4H PRN IV .SEVERE PAIN 7-10 Last administered on 11/06/18at 05:32; Admin Dose 2 MG; Start 11/04/18 at 18:30 Docusate Sodium (Colace) 100 mg Q12H PRN PO .CONSTIPATION; Start 11/04/18 at 18:30 Magnesium Hydroxide (Milk Of Mag) 30 ml DAILY PRN PO .CONSTIPATION; Start 11/04/18 at 18:30 Pantoprazole (Protonix Tab) 40 mg DAILY@06 PO Last administered on 11/06/18at 05:40; Admin Dose 40 MG; Start 11/05/18 at 06:00 Enoxaparin Sodium (Lovenox) 40 mg DAILY SC Last administered on 11/06/18at 08:42; Admin Dose 40 MG; Start 11/05/18 at 09:00 Piperacillin Sod/ Tazobactam Sod 100 ml @ 200 mls/hr Q8 IVPB Last administered on 11/06/18at 05:35; Admin Dose 200 MLS/HR; Start 11/04/18 at 22:00 Vancomycin HCl (Vanco Iv Per Pharmacy) 1 ea NOTE XX ; Start 11/04/18 at 19:00 Insulin Aspart (Novolog Insulin Pen) NOVOLOG *MILD* ALGORITHM WITH MEALS BEDTIME SC Last administered on 11/05/18at 17:54; Admin Dose 1 UNIT; Start 11/04/18 at 21:00 Miscellaneous Information 1 ea NOTE XX ; Start 11/04/18 at 19:30 Glucose (Glutose) 15 gm Q15M PRN PO DECREASED GLUCOSE; Start 11/04/18 at 19:30 Glucose (Glutose) 22.5 gm Q15M PRN PO DECREASED GLUCOSE; Start 11/04/18 at 19:30 Dextrose (D50w Syringe) 25 ml Q15M PRN IV DECREASED GLUCOSE; Start 11/04/18 at 19:30 Dextrose (D50w Syringe) 50 ml Q15M PRN IV DECREASED GLUCOSE; Start 11/04/18 at 19:30 Glucagon (Glucagen) 1 mg Q15M PRN IM DECREASED GLUCOSE; Start 11/04/18 at 19:30 Glucose (Glutose) 15 gm Q15M PRN BUCCAL DECREASED GLUCOSE; Start 11/04/18 at 19:30 Vancomycin HCl 250 ml @ 125 mls/hr Q12H IVPB Last administered on 11/05/18at 23:05; Admin Dose 125 MLS/HR; Start 11/05/18 at 11:00 Miscellaneous Information Patients own medicat... BID@10,16 XX ; Start 11/05/18 at 10:00 Miscellaneous Information (*Rx Drug Level Order Reminder*) VANCO TROUGH ON 10/24... 1000 ONCE XX ; Start 11/06/18 at 10:00; Stop 11/06/18 at 10:01 Insulin Glargine (Lantus) 14 units DAILY@0800 SC Last administered on 11/06/18at 08:42; Admin Dose 14 UNITS; Start 11/05/18 at 13:30 HIREN PERALTA NP Nov 06, 2018 09:55
[2018-11-06] MEDS: VANCOMYCIN 1 GM 250 ML IVPB SCH ×2 (11:51→23:23)
[2018-11-06] MEDS: HYDROCODONE/APAP (5/325) TAB PO PRN (12:00)
[2018-11-06 14:26] VITALS: BP 101/53; PULSE 60; RESP 17
--- NOTE | 2018-11-06 14:53 | CONS ---
Assessment/Plan Assessment/Plan Hospital Course (Demo Recall) Patient is alert feels good denies pain at the moment no fevers overnight WBC 13.5 BUN 34 creatinine 1.23 Antimicrobials: Vancomycin, Zosyn Lower extremity CT revealed ostial lysis of the toes and distal aspect of the fifth metatarsal with adjacent severe soft tissue swelling. Findings are concerning for osteomyelitis Physical examination: This is a well-nourished well-developed elderly white man who is alert in no distress. Head atraumatic normocephalic sclera nonicteric vehicle mucosa dry neck is supple chest rise symmetrical breath sounds clear. Heart: S1-S2. Abdomen soft bowel sounds present. Extremities: Right lower extremity with significant swelling erythema bruising above knee. Patient has a open wound on the calf Assessment: 1. S/p sepsis 2. Right lower extremity cellulitis, rule out osteomyelitis 3. Diabetes 4. MICHELLE Plan: Patient is clinically stable, right lower extremity looks better but still with significant swelling, change Zosyn to Rocephin, continue vancomycin, consider MRI of the foot Consultation Date/Type/Reason Admit Date/Time Nov 04, 2018 at 18:28 Initial Consult Date Type of Consult id Date/Time of Note DATE: 11/06/18 TIME: 14:52 Exam/Review of Systems Exam Vitals Vital Signs Date Temp Pulse Resp B/P (MAP) Pulse Ox O2 O2 Flow FiO2 Time Delivery Rate 11/06/18 99.1 60 17 101/53 97 Room Air 14:26 (69) Intake and Output 11/05/18 11/05/18 11/06/18 1515:00 23:00 07:00 IntakeIntake Total 950 ml 500 ml 650 ml OutputOutput Total 700 ml 400 ml 800 ml BalanceBalance 250 ml 100 ml -150 ml Results Result Diagram: 11/06/18 0454 11/06/18 0454 Results 24hrs Laboratory Tests Test 11/05/18 17:51 11/05/18 21:03 11/06/18 04:54 11/06/18 07:55 Bedside Glucose 175 173 126 White Blood Count 13.5 #H Red Blood Count 3.71 L Hemoglobin 11.8 L Hematocrit 34.8 L Mean Corpuscular 93.8 Volume Mean Corpuscular 31.8 Hemoglobin Mean Corpuscular 33.9 Hemoglobin Concent Red Cell 14.7 H Distribution Width Platelet Count 99 #L Mean Platelet Volume 13.6 H Immature 2.400 H Granulocytes % Neutrophils % Segmented 66 Neutrophils % (Manual) Band Neutrophils % 12 H (Manual) Lymphocytes % Lymphocytes % 10 L (Manual) Monocytes % Monocytes % (Manual) 7 Eosinophils % Basophils % Basophils % (Manual) 2 Myelocytes % 2 H (Manual) Promyelocytes % 1 H (Manual) Nucleated Red Blood 0.0 Cells % Immature 0.320 H Granulocytes # Neutrophils # Neutrophils # 9.1 H (Manual) Band Neutrophils # 1.6 H Lymphocytes (Manual) 1.3 Lymphocytes # Monocytes # Monocytes # (Manual) 0.9 Eosinophils # Basophils # Basophils # (Manual) 0.2 H Myelocytes # 0.2 H Promyelocytes # 0.1 H Nucleated Red Blood Cells # Platelet Estimate DECREASED Giant Platelets 1 H Poikilocytosis 3+ Sodium Level 135 Potassium Level 3.9 Chloride Level 109 Carbon Dioxide Level 21 Anion Gap 5 Blood Urea Nitrogen 34 H Creatinine 1.23 Est Glomerular 59 L Filtrat Rate mL/min Glucose Level 119 Calcium Level 7.3 L Test 11/06/18 10:32 11/06/18 11:53 Vancomycin Level 10.7 Trough Bedside Glucose 137 Medications Medication Current Medications Lisinopril (Zestril) 40 mg DAILY PO Last administered on 11/06/18at 08:41; Admin Dose 40 MG; Start 11/05/18 at 09:00 IV Flush (NS 3 ml) 3 ml PER PROTOCOL IV ; Start 11/04/18 at 18:30 Ondansetron HCl (Zofran Inj) 4 mg Q6H PRN IV NAUSEA/VOMITING; Start 11/04/18 at 18:30 Acetaminophen (Tylenol Tab) 650 mg Q6H PRN PO .PAIN 1-3 OR TEMP; Start 11/04/18 at 18:30 Acetaminophen/ Hydrocodone Bitart ([place] (5/325)) 1 tab Q6H PRN PO .MOD PAIN 4- 6; Start 11/04/18 at 18:30 Acetaminophen/ Hydrocodone Bitart ([place] (5/325)) 2 tab Q6H PRN PO .SEVERE PAIN 7-10 Last administered on 11/06/18at 12:00; Admin Dose 2 TAB; Start 11/04/18 at 18:30 Morphine Sulfate (morphine) 2 mg Q4H PRN IV .SEVERE PAIN 7-10 Last administered on 11/06/18at 05:32; Admin Dose 2 MG; Start 11/04/18 at 18:30 Docusate Sodium (Colace) 100 mg Q12H PRN PO .CONSTIPATION; Start 11/04/18 at 18:30 Magnesium Hydroxide (Milk Of Mag) 30 ml DAILY PRN PO .CONSTIPATION; Start 11/04/18 at 18:30 Pantoprazole (Protonix Tab) 40 mg DAILY@06 PO Last administered on 11/06/18at 05:40; Admin Dose 40 MG; Start 11/05/18 at 06:00 Enoxaparin Sodium (Lovenox) 40 mg DAILY SC Last administered on 11/06/18at 08:42; Admin Dose 40 MG; Start 11/05/18 at 09:00 Piperacillin Sod/ Tazobactam Sod 100 ml @ 200 mls/hr Q8 IVPB Last administered on 11/06/18at 05:35; Admin Dose 200 MLS/HR; Start 11/04/18 at 22:00 Vancomycin HCl (Vanco Iv Per Pharmacy) 1 ea NOTE XX ; Start 11/04/18 at 19:00 Insulin Aspart (Novolog Insulin Pen) NOVOLOG *MILD* ALGORITHM WITH MEALS BEDTIME SC Last administered on 11/05/18at 17:54; Admin Dose 1 UNIT; Start 11/04/18 at 21:00 Miscellaneous Information 1 ea NOTE XX ; Start 11/04/18 at 19:30 Glucose (Glutose) 15 gm Q15M PRN PO DECREASED GLUCOSE; Start 11/04/18 at 19:30 Glucose (Glutose) 22.5 gm Q15M PRN PO DECREASED GLUCOSE; Start 11/04/18 at 19:30 Dextrose (D50w Syringe) 25 ml Q15M PRN IV DECREASED GLUCOSE; Start 11/04/18 at 19:30 Dextrose (D50w Syringe) 50 ml Q15M PRN IV DECREASED GLUCOSE; Start 11/04/18 at 19:30 Glucagon (Glucagen) 1 mg Q15M PRN IM DECREASED GLUCOSE; Start 11/04/18 at 19:30 Glucose (Glutose) 15 gm Q15M PRN BUCCAL DECREASED GLUCOSE; Start 11/04/18 at 19:30 Vancomycin HCl 250 ml @ 125 mls/hr Q12H IVPB Last administered on 11/06/18at 11:51; Admin Dose 125 MLS/HR; Start 11/05/18 at 11:00 Miscellaneous Information Patients own medicat... BID@10,16 XX ; Start 11/05/18 at 10:00 Insulin Glargine (Lantus) 14 units DAILY@0800 SC Last administered on 11/06/18at 08:42; Admin Dose 14 UNITS; Start 11/05/18 at 13:30 HEIDY CORTEZ NP Nov 06, 2018 14:53
[2018-11-06] MEDS: CEFTRIAXONE 1 GM/50 ML (PMX) 50 ML IVPB SCH (15:04)
[2018-11-06 20:00] VITALS: BP 115/56; PULSE 69; RESP 18
[2018-11-07 02:00] VITALS: BP 128/62; PULSE 67; RESP 18
[2018-11-07] MEDS: PANTOPRAZOLE (EC) 40 MG TAB PO SCH (05:38)
[2018-11-07 07:35] VITALS: BP 129/60; PULSE 65; RESP 16
[2018-11-07] MEDS: INSULIN ASPART [NOVOLOG] 3 ML PEN SC SCH ×4 (08:00→20:42)
[2018-11-07] MEDS: INSULIN GLARGINE [LANTus] (100 UNITS/ML) SYG SC SCH (08:34)
[2018-11-07] MEDS: HYDROCODONE/APAP (5/325) TAB PO PRN (08:37)
[2018-11-07] MEDS: LISINOPRIL 20 MG TAB PO SCH (08:38)
[2018-11-07] MEDS: ENOXAPARIN 40 MG/0.4 ML SYG SC SCH (08:42)
--- NOTE | 2018-11-07 11:11 | PN ---
Date/Time of Note Date/Time of Note DATE: 11/07/18 TIME: 11:09 Assessment/Plan VTE Prophylaxis Risk score (from [facility] [place])>0 risk: 4 SCD applied (from [facility] [place]): No SCD contraindicated: bilateral LE trauma Pharmacological prophylaxis: heparin Pharm contraindication: low risk/ambulating Lines/Catheters IV Catheter Type (from [facility]): Peripheral IV Urinary Cath still in place: No Assessment/Plan Problems: (1) Severe sepsis Status: Acute Comment: Is improving. Please note that the degree of thrombocytopenia was more than I would have expected given the overall clinical status. Regardless he is improving nicely. I am a little concerned I may want to check into why he had the thrombocytopenia even though is normalizing i.e. does have some occult liver disease (2) Cellulitis of right lower extremity Status: Acute Comment: Continues with treatment. I am not entirely certain how help I am with the speed that he is recovering however he is doing okay right now. He may need repeat imaging study as he might have some fluid collections that need to be approached (3) Diabetes mellitus type 2 in nonobese Status: Chronic Comment: Excellent glycemic control at the present time. (4) Essential hypertension Status: Chronic Comment: Adequate blood pressure control at the present time (5) Onychomycosis Status: Chronic Comment: Lamisil pulse therapy Result Diagram: 11/07/18 0649 11/06/18 0454 Results 24hrs Laboratory Tests Test 11/06/18 11:53 11/06/18 17:29 11/06/18 20:14 11/07/18 06:49 Bedside Glucose 137 134 140 White Blood Count 11.4 H Red Blood Count 3.81 L Hemoglobin 12.0 L Hematocrit 36.2 L Mean Corpuscular 95.0 Volume Mean Corpuscular 31.5 Hemoglobin Mean Corpuscular 33.1 Hemoglobin Concent Red Cell 14.7 H Distribution Width Platelet Count 130 #L Mean Platelet Volume 12.7 H Immature 4.500 H Granulocytes % Neutrophils % Segmented 80 H Neutrophils % (Manual) Band Neutrophils % 4 (Manual) Lymphocytes % Lymphocytes % 8 L (Manual) Reactive Lymphocytes 1 H % (Manual) Monocytes % Monocytes % (Manual) 4 Eosinophils % Eosinophils % 2 (Manual) Basophils % Plasma Cells % 1 (manual) Nucleated Red Blood 0.0 Cells % Immature 0.520 H Granulocytes # Neutrophils # Neutrophils # 9.2 H (Manual) Band Neutrophils # 0.4 Lymphocytes (Manual) 0.9 Lymphocytes # Reactive Lymphocytes 0.1 H # Monocytes # Monocytes # (Manual) 0.4 Eosinophils # Basophils # Plasma Cells # 0.1 H (manual) Nucleated Red Blood Cells # Toxic Granulation 1+ Platelet Estimate DECREASED Giant Platelets 1 H Poikilocytosis 2+ Ovalocytes 1+ Test 11/07/18 08:26 Bedside Glucose 139 Subjective 24 Hr Interval Summary Free Text/Dictation Patient reports from his perspective his leg is improving although when he does try and stand and ambulate to the bathroom he still gets significant pain. Constitutional: no complaints (Eyes fevers chills or sweats) Respiratory: no complaints Cardiovascular: no complaints Gastrointestinal: no complaints (Denies any history of liver disease) Genitourinary: no complaints Exam/Review of Systems Exam Vitals Vital Signs Date Temp Pulse Resp B/P (MAP) Pulse Ox O2 O2 Flow FiO2 Time Delivery Rate 11/07/18 98.0 65 16 129/60 95 Room Air 07:35 (83) Intake and Output 11/06/18 11/06/18 11/07/18 1515:00 23:00 07:00 IntakeIntake Total 400 ml 500 ml 250 ml OutputOutput Total 900 ml BalanceBalance 400 ml -400 ml 250 ml Constitutional: alert, oriented Respiratory: clear to auscultation, normal air movement Cardiovascular: regular rate and rhythm, nl pulses, other (Spider angiomata present) Gastrointestinal: soft, nl liver, spleen, non-tender Extremities: normal pulses (Onychomycosis present) Results Results 24hrs Laboratory Tests Test 11/06/18 11:53 11/06/18 17:29 11/06/18 20:14 11/07/18 06:49 Bedside Glucose 137 134 140 White Blood Count 11.4 H Red Blood Count 3.81 L Hemoglobin 12.0 L Hematocrit 36.2 L Mean Corpuscular 95.0 Volume Mean Corpuscular 31.5 Hemoglobin Mean Corpuscular 33.1 Hemoglobin Concent Red Cell 14.7 H Distribution Width Platelet Count 130 #L Mean Platelet Volume 12.7 H Immature 4.500 H Granulocytes % Neutrophils % Segmented 80 H Neutrophils % (Manual) Band Neutrophils % 4 (Manual) Lymphocytes % Lymphocytes % 8 L (Manual) Reactive Lymphocytes 1 H % (Manual) Monocytes % Monocytes % (Manual) 4 Eosinophils % Eosinophils % 2 (Manual) Basophils % Plasma Cells % 1 (manual) Nucleated Red Blood 0.0 Cells % Immature 0.520 H Granulocytes # Neutrophils # Neutrophils # 9.2 H (Manual) Band Neutrophils # 0.4 Lymphocytes (Manual) 0.9 Lymphocytes # Reactive Lymphocytes 0.1 H # Monocytes # Monocytes # (Manual) 0.4 Eosinophils # Basophils # Plasma Cells # 0.1 H (manual) Nucleated Red Blood Cells # Toxic Granulation 1+ Platelet Estimate DECREASED Giant Platelets 1 H Poikilocytosis 2+ Ovalocytes 1+ Test 11/07/18 08:26 Bedside Glucose 139 Medications Medication Current Medications Lisinopril (Zestril) 40 mg DAILY PO Last administered on 11/07/18at 08:38; Admin Dose 40 MG; Start 11/05/18 at 09:00 IV Flush (NS 3 ml) 3 ml PER PROTOCOL IV ; Start 11/04/18 at 18:30 Ondansetron HCl (Zofran Inj) 4 mg Q6H PRN IV NAUSEA/VOMITING; Start 11/04/18 at 18:30 Acetaminophen (Tylenol Tab) 650 mg Q6H PRN PO .PAIN 1-3 OR TEMP; Start 11/04/18 at 18:30 Acetaminophen/ Hydrocodone Bitart ([place] (5/325)) 1 tab Q6H PRN PO .MOD PAIN 4- 6; Start 11/04/18 at 18:30 Acetaminophen/ Hydrocodone Bitart ([place] (5/325)) 2 tab Q6H PRN PO .SEVERE PAIN 7-10 Last administered on 11/07/18at 08:37; Admin Dose 2 TAB; Start 11/04/18 at 18:30 Morphine Sulfate (morphine) 2 mg Q4H PRN IV .SEVERE PAIN 7-10 Last administered on 11/06/18at 05:32; Admin Dose 2 MG; Start 11/04/18 at 18:30 Docusate Sodium (Colace) 100 mg Q12H PRN PO .CONSTIPATION; Start 11/04/18 at 18:30 Magnesium Hydroxide (Milk Of Mag) 30 ml DAILY PRN PO .CONSTIPATION; Start 11/04/18 at 18:30 Pantoprazole (Protonix Tab) 40 mg DAILY@06 PO Last administered on 11/07/18at 05:38; Admin Dose 40 MG; Start 11/05/18 at 06:00 Enoxaparin Sodium (Lovenox) 40 mg DAILY SC Last administered on 11/07/18at 08:42; Admin Dose 40 MG; Start 11/05/18 at 09:00 Vancomycin HCl (Vanco Iv Per Pharmacy) 1 ea NOTE XX ; Start 11/04/18 at 19:00 Insulin Aspart (Novolog Insulin Pen) NOVOLOG *MILD* ALGORITHM WITH MEALS BEDTIME SC Last administered on 11/05/18at 17:54; Admin Dose 1 UNIT; Start 11/04/18 at 21:00 Miscellaneous Information 1 ea NOTE XX ; Start 11/04/18 at 19:30 Glucose (Glutose) 15 gm Q15M PRN PO DECREASED GLUCOSE; Start 11/04/18 at 19:30 Glucose (Glutose) 22.5 gm Q15M PRN PO DECREASED GLUCOSE; Start 11/04/18 at 19:30 Dextrose (D50w Syringe) 25 ml Q15M PRN IV DECREASED GLUCOSE; Start 11/04/18 at 19:30 Dextrose (D50w Syringe) 50 ml Q15M PRN IV DECREASED GLUCOSE; Start 11/04/18 at 19:30 Glucagon (Glucagen) 1 mg Q15M PRN IM DECREASED GLUCOSE; Start 11/04/18 at 19:30 Glucose (Glutose) 15 gm Q15M PRN BUCCAL DECREASED GLUCOSE; Start 11/04/18 at 19:30 Vancomycin HCl 250 ml @ 125 mls/hr Q12H IVPB Last administered on 11/06/18at 23:23; Admin Dose 125 MLS/HR; Start 11/05/18 at 11:00 Miscellaneous Information Patients own medicat... BID@10,16 XX ; Start 11/05/18 at 10:00 Insulin Glargine (Lantus) 14 units DAILY@0800 SC Last administered on 11/07/18at 08:34; Admin Dose 14 UNITS; Start 11/05/18 at 13:30 Ceftriaxone Sodium 50 ml @ 100 mls/hr Q24H IVPB Last administered on 11/06/18at 15:04; Admin Dose 100 MLS/HR; Start 11/06/18 at 15:00 LESLIE CUI MD Nov 07, 2018 11:11
[2018-11-07] MEDS: VANCOMYCIN 1 GM 250 ML IVPB SCH ×2 (11:24→23:00)
[2018-11-07] MEDS: TERBINAFINE 250 MG TAB PO SCH ×2 (12:51→20:43)
[2018-11-07 14:22] VITALS: BP 136/65; PULSE 59; RESP 18
[2018-11-07] MEDS: CEFTRIAXONE 1 GM/50 ML (PMX) 50 ML IVPB SCH (14:54)
--- NOTE | 2018-11-07 15:00 | CONS ---
Consultation Date/Type/Reason Admit Date/Time Nov 04, 2018 at 18:28 Initial Consult Date Type of Consult SUBJECTIVE: Patient is awake, alert, resting in bed. NO fevers. VS: stable T: 98.7 LABS: Reviewed. WBC- 11.4 -Improving Antimicrobials: Vancomycin, Rocephin Lower extremity CT revealed ostial lysis of the toes and distal aspect of the fifth metatarsal with adjacent severe soft tissue swelling. Findings are concerning for osteomyelitis MRI of LE: IMPRESSION: 1. Soft tissue swelling and edema is seen over the right leg, with scattered fluid throughout the subcutaneous tissues, similar in appearance to today's CT examination of the right lower extremity. 2. No evident osteomyelitis in the right tibia or fibula. 3. No evident abscess. 4. Nonspecific mild osseous excrescence is again seen at the posterior medial aspect of the distal tibial metaphysis and differential considerations include remote posterior tibialis tendinosis, or remote injury involving the posterior tibialis tendon or posterior medial distal tibial metaphysis. 5. The right foot and ankle are not included within the field of view on the current examination, and an MRI examination of the right foot would be of further use in CT findings of osteomyelitis. Physical examination: GEN: This is a well-nourished well-developed elderly white man, who is alert in no distress. HENT: Head atraumatic normocephalic, sclera nonicteric vehicle mucosa dry, neck is supple PULM: chest rise symmetrical breath sounds clear. Heart: S1-S2. Abdomen: soft, bowel sounds present. Extremities: Right lower extremity with significant swelling erythema bruising above knee. Patient has a open wound on the calf Assessment: 1. S/p sepsis 2. Right lower extremity cellulitis, rule out osteomyelitis 3. Diabetes 4. MICHELLE Plan: Patient is clinically stable. Right lower extremity is improving with current treatment. WBC improving, no fevers. Will order MRI of the foot to R/O OM. Continue current IV antbx. Date/Time of Note DATE: 11/07/18 TIME: 14:53 Exam/Review of Systems Exam Vitals Vital Signs Date Temp Pulse Resp B/P (MAP) Pulse Ox O2 O2 Flow FiO2 Time Delivery Rate 11/07/18 98.7 59 18 136/65 97 Room Air 14:22 (88) Intake and Output 11/06/18 11/06/18 11/07/18 1515:00 23:00 07:00 IntakeIntake Total 400 ml 500 ml 250 ml OutputOutput Total 900 ml BalanceBalance 400 ml -400 ml 250 ml Results Result Diagram: 11/07/18 0649 11/06/18 0454 Results 24hrs Laboratory Tests Test 11/06/18 17:29 11/06/18 20:14 11/07/18 06:44 11/07/18 06:49 Bedside Glucose 134 140 Hepatitis B Surface NEGATIVE Antigen Hepatitis C Antibody REACTIVE H White Blood Count 11.4 H Red Blood Count 3.81 L Hemoglobin 12.0 L Hematocrit 36.2 L Mean Corpuscular 95.0 Volume Mean Corpuscular 31.5 Hemoglobin Mean Corpuscular 33.1 Hemoglobin Concent Red Cell 14.7 H Distribution Width Platelet Count 130 #L Mean Platelet Volume 12.7 H Immature 4.500 H Granulocytes % Neutrophils % Segmented 80 H Neutrophils % (Manual) Band Neutrophils % 4 (Manual) Lymphocytes % Lymphocytes % 8 L (Manual) Reactive Lymphocytes 1 H % (Manual) Monocytes % Monocytes % (Manual) 4 Eosinophils % Eosinophils % 2 (Manual) Basophils % Plasma Cells % 1 (manual) Nucleated Red Blood 0.0 Cells % Immature 0.520 H Granulocytes # Neutrophils # Neutrophils # 9.2 H (Manual) Band Neutrophils # 0.4 Lymphocytes (Manual) 0.9 Lymphocytes # Reactive Lymphocytes 0.1 H # Monocytes # Monocytes # (Manual) 0.4 Eosinophils # Basophils # Plasma Cells # 0.1 H (manual) Nucleated Red Blood Cells # Toxic Granulation 1+ Platelet Estimate DECREASED Giant Platelets 1 H Poikilocytosis 2+ Ovalocytes 1+ Test 11/07/18 08:26 11/07/18 12:50 Bedside Glucose 139 138 Medications Medication Current Medications Lisinopril (Zestril) 40 mg DAILY PO Last administered on 11/07/18at 08:38; Admin Dose 40 MG; Start 11/05/18 at 09:00 IV Flush (NS 3 ml) 3 ml PER PROTOCOL IV ; Start 11/04/18 at 18:30 Ondansetron HCl (Zofran Inj) 4 mg Q6H PRN IV NAUSEA/VOMITING; Start 11/04/18 at 18:30 Acetaminophen (Tylenol Tab) 650 mg Q6H PRN PO .PAIN 1-3 OR TEMP; Start 11/04/18 at 18:30 Acetaminophen/ Hydrocodone Bitart ([place] (5/325)) 1 tab Q6H PRN PO .MOD PAIN 4- 6; Start 11/04/18 at 18:30 Acetaminophen/ Hydrocodone Bitart ([place] (5/325)) 2 tab Q6H PRN PO .SEVERE PAIN 7-10 Last administered on 11/07/18at 08:37; Admin Dose 2 TAB; Start 11/04/18 at 18:30 Morphine Sulfate (morphine) 2 mg Q4H PRN IV .SEVERE PAIN 7-10 Last administered on 11/06/18at 05:32; Admin Dose 2 MG; Start 11/04/18 at 18:30 Docusate Sodium (Colace) 100 mg Q12H PRN PO .CONSTIPATION; Start 11/04/18 at 18:30 Magnesium Hydroxide (Milk Of Mag) 30 ml DAILY PRN PO .CONSTIPATION; Start 11/04/18 at 18:30 Pantoprazole (Protonix Tab) 40 mg DAILY@06 PO Last administered on 11/07/18at 05:38; Admin Dose 40 MG; Start 11/05/18 at 06:00 Enoxaparin Sodium (Lovenox) 40 mg DAILY SC Last administered on 11/07/18at 08:42; Admin Dose 40 MG; Start 11/05/18 at 09:00 Vancomycin HCl (Vanco Iv Per Pharmacy) 1 ea NOTE XX ; Start 11/04/18 at 19:00 Insulin Aspart (Novolog Insulin Pen) NOVOLOG *MILD* ALGORITHM WITH MEALS BEDTIME SC Last administered on 11/05/18at 17:54; Admin Dose 1 UNIT; Start 11/04/18 at 21:00 Miscellaneous Information 1 ea NOTE XX ; Start 11/04/18 at 19:30 Glucose (Glutose) 15 gm Q15M PRN PO DECREASED GLUCOSE; Start 11/04/18 at 19:30 Glucose (Glutose) 22.5 gm Q15M PRN PO DECREASED GLUCOSE; Start 11/04/18 at 19:30 Dextrose (D50w Syringe) 25 ml Q15M PRN IV DECREASED GLUCOSE; Start 11/04/18 at 19:30 Dextrose (D50w Syringe) 50 ml Q15M PRN IV DECREASED GLUCOSE; Start 11/04/18 at 19:30 Glucagon (Glucagen) 1 mg Q15M PRN IM DECREASED GLUCOSE; Start 11/04/18 at 19:30 Glucose (Glutose) 15 gm Q15M PRN BUCCAL DECREASED GLUCOSE; Start 11/04/18 at 19:30 Vancomycin HCl 250 ml @ 125 mls/hr Q12H IVPB Last administered on 11/07/18at 11:24; Admin Dose 125 MLS/HR; Start 11/05/18 at 11:00 Miscellaneous Information Patients own medicat... BID@10,16 XX ; Start 11/05/18 at 10:00 Insulin Glargine (Lantus) 14 units DAILY@0800 SC Last administered on 11/07/18at 08:34; Admin Dose 14 UNITS; Start 11/05/18 at 13:30 Ceftriaxone Sodium 50 ml @ 100 mls/hr Q24H IVPB Last administered on 11/06/18at 15:04; Admin Dose 100 MLS/HR; Start 11/06/18 at 15:00 Terbinafine HCl (Lamisil) 250 mg BID PO Last administered on 11/07/18at 12:51; Admin Dose 250 MG; Start 11/07/18 at 11:30; Stop 11/14/18 at 11:29 NICKY NOLAN Nov 07, 2018 15:00
[2018-11-07 21:13] VITALS: BP 143/70; PULSE 74; RESP 16
[2018-11-08 02:46] VITALS: BP 120/59; PULSE 64; RESP 16
[2018-11-08] MEDS: VANCOMYCIN 1 GM 250 ML IVPB SCH ×2 (04:19→17:06)
[2018-11-08] MEDS: PANTOPRAZOLE (EC) 40 MG TAB PO SCH (05:04)
[2018-11-08 07:44] VITALS: BP 144/65; PULSE 57; RESP 16
[2018-11-08] MEDS: INSULIN ASPART [NOVOLOG] 3 ML PEN SC SCH ×4 (08:00→21:00)
[2018-11-08] MEDS: TERBINAFINE 250 MG TAB PO SCH ×2 (08:32→21:01)
[2018-11-08] MEDS: LISINOPRIL 20 MG TAB PO SCH (08:33)
[2018-11-08] MEDS: ENOXAPARIN 40 MG/0.4 ML SYG SC SCH (08:34)
[2018-11-08] MEDS: morphine 2 MG INJ IV PRN (08:41)
--- NOTE | 2018-11-08 08:51 | PN ---
Date/Time of Note Date/Time of Note DATE: 11/08/18 TIME: 08:48 Assessment/Plan VTE Prophylaxis Risk score (from Ns)>0 risk: 4 SCD applied (from [facility] [place]): No SCD contraindicated: bilateral LE trauma Pharmacological prophylaxis: heparin Lines/Catheters IV Catheter Type (from [facility]): Peripheral IV Urinary Cath still in place: No Assessment/Plan Problems: (1) Cellulitis of right lower extremity Status: Acute Comment: He is progressing but marginally and significantly less than one would expect. I have a significant suspicion there is something more going on in the leg and he may have some fluid collections that need to be approached. Repeat imaging has been ordered and infectious disease is involved (2) Diabetes mellitus type 2 in nonobese Status: Chronic Comment: Adequate glycemic control (3) Essential hypertension Status: Chronic Comment: Blood pressure control is at goal (4) Hepatitis C antibody positive in blood Status: Chronic Comment: Patient reports he is known about the hepatitis C for over 4 years and had been referred for years ago to a environmental geologist. He never went because this was at the time that his . This would match up with this thrombocytopenia. I am going to go ahead and do an abdominal ultrasound to see what degree of liver dysfunction we have got (5) Onychomycosis Status: Chronic Comment: On treatment Result Diagram: 11/08/18 0508 11/08/18 0508 Results 24hrs Laboratory Tests Test 11/07/18 12:50 11/07/18 17:29 11/07/18 20:40 11/08/18 05:08 Bedside Glucose 138 125 155 White Blood Count 11.6 H Red Blood Count 3.71 L Hemoglobin 11.7 L Hematocrit 35.0 L Mean Corpuscular 94.3 Volume Mean Corpuscular 31.5 Hemoglobin Mean Corpuscular 33.4 Hemoglobin Concent Red Cell 14.8 H Distribution Width Platelet Count 139 L Mean Platelet Volume 12.7 H Immature 4.800 H Granulocytes % Neutrophils % 72.6 Segmented 74 Neutrophils % (Manual) Band Neutrophils % 1 (Manual) Lymphocytes % 9.5 L Lymphocytes % 9 L (Manual) Monocytes % 10.8 Monocytes % (Manual) 12 H Eosinophils % 1.6 Eosinophils % 2 (Manual) Basophils % 0.7 Myelocytes % 1 H (Manual) Promyelocytes % 1 H (Manual) Nucleated Red Blood 0.0 Cells % Immature 0.550 H Granulocytes # Neutrophils # 8.4 H Neutrophils # 8.6 H (Manual) Band Neutrophils # 0.1 Lymphocytes (Manual) 1.0 Lymphocytes # 1.1 Monocytes # 1.3 H Monocytes # (Manual) 1.3 H Eosinophils # 0.2 Basophils # 0.1 Myelocytes # 0.1 H Promyelocytes # 0.1 H Nucleated Red Blood 0.0 Cells # Toxic Granulation 1+ Platelet Estimate DECREASED Giant Platelets 1 H Poikilocytosis 2+ Ovalocytes 1+ Sodium Level 136 Potassium Level 4.1 Chloride Level 110 Carbon Dioxide Level 23 Anion Gap 3 L Blood Urea Nitrogen 22 H Creatinine 0.85 Est Glomerular > 60 Filtrat Rate mL/min Glucose Level 122 Calcium Level 7.9 L Total Bilirubin 0.9 Direct Bilirubin 0.00 Indirect Bilirubin 0.9 Aspartate Amino 29 Transf (AST/SGOT) Alanine 20 Aminotransferase (AL T/SGPT) Alkaline Phosphatase 70 Total Protein 6.2 Albumin 2.4 L Globulin 3.80 H Albumin/Globulin 0.63 Ratio Test 11/08/18 08:07 Bedside Glucose 108 Subjective 24 Hr Interval Summary Free Text/Dictation Patient reports he still having a lot of pain from the leg but it is a tiny bit better. Constitutional: no complaints Respiratory: no complaints Cardiovascular: no complaints Gastrointestinal: no complaints Genitourinary: no complaints Musculoskeletal: other (Right leg pain of tries to ambulate) Exam/Review of Systems Exam Vitals Vital Signs Date Temp Pulse Resp B/P (MAP) Pulse Ox O2 O2 Flow FiO2 Time Delivery Rate 11/08/18 98.9 57 16 144/65 97 Room Air 07:44 (91) Intake and Output 11/07/18 11/07/18 11/08/18 1515:00 23:00 07:00 IntakeIntake Total 790 ml 350 ml 250 ml OutputOutput Total 950 ml BalanceBalance -160 ml 350 ml 250 ml Constitutional: alert, oriented Respiratory: clear to auscultation, normal air movement Cardiovascular: regular rate and rhythm, nl pulses Gastrointestinal: soft, nl liver, spleen, non-tender Results Results 24hrs Laboratory Tests Test 11/07/18 12:50 11/07/18 17:29 11/07/18 20:40 11/08/18 05:08 Bedside Glucose 138 125 155 White Blood Count 11.6 H Red Blood Count 3.71 L Hemoglobin 11.7 L Hematocrit 35.0 L Mean Corpuscular 94.3 Volume Mean Corpuscular 31.5 Hemoglobin Mean Corpuscular 33.4 Hemoglobin Concent Red Cell 14.8 H Distribution Width Platelet Count 139 L Mean Platelet Volume 12.7 H Immature 4.800 H Granulocytes % Neutrophils % 72.6 Segmented 74 Neutrophils % (Manual) Band Neutrophils % 1 (Manual) Lymphocytes % 9.5 L Lymphocytes % 9 L (Manual) Monocytes % 10.8 Monocytes % (Manual) 12 H Eosinophils % 1.6 Eosinophils % 2 (Manual) Basophils % 0.7 Myelocytes % 1 H (Manual) Promyelocytes % 1 H (Manual) Nucleated Red Blood 0.0 Cells % Immature 0.550 H Granulocytes # Neutrophils # 8.4 H Neutrophils # 8.6 H (Manual) Band Neutrophils # 0.1 Lymphocytes (Manual) 1.0 Lymphocytes # 1.1 Monocytes # 1.3 H Monocytes # (Manual) 1.3 H Eosinophils # 0.2 Basophils # 0.1 Myelocytes # 0.1 H Promyelocytes # 0.1 H Nucleated Red Blood 0.0 Cells # Toxic Granulation 1+ Platelet Estimate DECREASED Giant Platelets 1 H Poikilocytosis 2+ Ovalocytes 1+ Sodium Level 136 Potassium Level 4.1 Chloride Level 110 Carbon Dioxide Level 23 Anion Gap 3 L Blood Urea Nitrogen 22 H Creatinine 0.85 Est Glomerular > 60 Filtrat Rate mL/min Glucose Level 122 Calcium Level 7.9 L Total Bilirubin 0.9 Direct Bilirubin 0.00 Indirect Bilirubin 0.9 Aspartate Amino 29 Transf (AST/SGOT) Alanine 20 Aminotransferase (AL T/SGPT) Alkaline Phosphatase 70 Total Protein 6.2 Albumin 2.4 L Globulin 3.80 H Albumin/Globulin 0.63 Ratio Test 11/08/18 08:07 Bedside Glucose 108 Medications Medication Current Medications Lisinopril (Zestril) 40 mg DAILY PO Last administered on 11/08/18at 08:33; Admin Dose 40 MG; Start 11/05/18 at 09:00 IV Flush (NS 3 ml) 3 ml PER PROTOCOL IV ; Start 11/04/18 at 18:30 Ondansetron HCl (Zofran Inj) 4 mg Q6H PRN IV NAUSEA/VOMITING; Start 11/04/18 at 18:30 Acetaminophen (Tylenol Tab) 650 mg Q6H PRN PO .PAIN 1-3 OR TEMP; Start 11/04/18 at 18:30 Acetaminophen/ Hydrocodone Bitart ([place] (5/325)) 1 tab Q6H PRN PO .MOD PAIN 4- 6; Start 11/04/18 at 18:30 Acetaminophen/ Hydrocodone Bitart ([place] (5/325)) 2 tab Q6H PRN PO .SEVERE PAIN 7-10 Last administered on 11/07/18at 08:37; Admin Dose 2 TAB; Start 11/04/18 at 18:30 Morphine Sulfate (morphine) 2 mg Q4H PRN IV .SEVERE PAIN 7-10 Last administered on 11/08/18at 08:41; Admin Dose 2 MG; Start 11/04/18 at 18:30 Docusate Sodium (Colace) 100 mg Q12H PRN PO .CONSTIPATION; Start 11/04/18 at 18:30 Magnesium Hydroxide (Milk Of Mag) 30 ml DAILY PRN PO .CONSTIPATION; Start 11/04/18 at 18:30 Pantoprazole (Protonix Tab) 40 mg DAILY@06 PO Last administered on 11/08/18at 05:04; Admin Dose 40 MG; Start 11/05/18 at 06:00 Enoxaparin Sodium (Lovenox) 40 mg DAILY SC Last administered on 11/08/18at 08:34; Admin Dose 40 MG; Start 11/05/18 at 09:00 Vancomycin HCl (Vanco Iv Per Pharmacy) 1 ea NOTE XX ; Start 11/04/18 at 19:00 Insulin Aspart (Novolog Insulin Pen) NOVOLOG *MILD* ALGORITHM WITH MEALS BEDTIME SC Last administered on 11/05/18at 17:54; Admin Dose 1 UNIT; Start 11/04/18 at 21:00 Miscellaneous Information 1 ea NOTE XX ; Start 11/04/18 at 19:30 Glucose (Glutose) 15 gm Q15M PRN PO DECREASED GLUCOSE; Start 11/04/18 at 19:30 Glucose (Glutose) 22.5 gm Q15M PRN PO DECREASED GLUCOSE; Start 11/04/18 at 19:30 Dextrose (D50w Syringe) 25 ml Q15M PRN IV DECREASED GLUCOSE; Start 11/04/18 at 19:30 Dextrose (D50w Syringe) 50 ml Q15M PRN IV DECREASED GLUCOSE; Start 11/04/18 at 19:30 Glucagon (Glucagen) 1 mg Q15M PRN IM DECREASED GLUCOSE; Start 11/04/18 at 19:30 Glucose (Glutose) 15 gm Q15M PRN BUCCAL DECREASED GLUCOSE; Start 11/04/18 at 19:30 Miscellaneous Information Patients own medicat... BID@10,16 XX ; Start 11/05/18 at 10:00 Insulin Glargine (Lantus) 14 units DAILY@0800 SC Last administered on 11/07/18at 08:34; Admin Dose 14 UNITS; Start 11/05/18 at 13:30 Ceftriaxone Sodium 50 ml @ 100 mls/hr Q24H IVPB Last administered on 11/07/18at 14:54; Admin Dose 100 MLS/HR; Start 11/06/18 at 15:00 Terbinafine HCl (Lamisil) 250 mg BID PO Last administered on 11/08/18at 08:32; Admin Dose 250 MG; Start 11/07/18 at 11:30; Stop 11/14/18 at 11:29 Vancomycin HCl 250 ml @ 125 mls/hr Q12H IVPB ; Start 11/08/18 at 16:00 LESLIE CUI MD Nov 08, 2018 08:51
[2018-11-08] MEDS: INSULIN GLARGINE [LANTus] (100 UNITS/ML) SYG SC SCH (09:36)
[2018-11-08 14:03] VITALS: BP 156/70; PULSE 63; RESP 16
--- NOTE | 2018-11-08 14:59 | CONS ---
Consultation Date/Type/Reason Admit Date/Time Nov 04, 2018 at 18:28 Initial Consult Date Type of Consult SUBJECTIVE: Patient is awake, alert, resting in bed. NO fevers. VS: stable T: 98.2 LABS: Reviewed. WBC- 11.6 Antimicrobials: Vancomycin, Rocephin Lower extremity CT revealed ostial lysis of the toes and distal aspect of the fifth metatarsal with adjacent severe soft tissue swelling. Findings are concerning for osteomyelitis MRI of LE: IMPRESSION: 1. Soft tissue swelling and edema is seen over the right leg, with scattered fluid throughout the subcutaneous tissues, similar in appearance to today's CT examination of the right lower extremity. 2. No evident osteomyelitis in the right tibia or fibula. 3. No evident abscess. 4. Nonspecific mild osseous excrescence is again seen at the posterior medial aspect of the distal tibial metaphysis and differential considerations include remote posterior tibialis tendinosis, or remote injury involving the posterior tibialis tendon or posterior medial distal tibial metaphysis. 5. The right foot and ankle are not included within the field of view on the current examination, and an MRI examination of the right foot would be of further use in CT findings of osteomyelitis. Physical examination: GEN: This is a well-nourished well-developed elderly white man, who is alert in no distress. HENT: Head atraumatic normocephalic, sclera nonicteric vehicle mucosa dry, neck is supple PULM: chest rise symmetrical breath sounds clear. Heart: S1-S2. Abdomen: soft, bowel sounds present. Extremities: Right lower extremity with significant swelling erythema bruising above knee. Patient has a open wound on the calf Assessment: 1. S/p sepsis 2. Right lower extremity cellulitis, rule out osteomyelitis 3. Diabetes 4. MICHELLE Plan: Patient is clinically stable. Right lower extremity is improving with current treatment. Pending MRI of the foot to R/O OM. Continue current IV antbx. Date/Time of Note DATE: 11/08/18 TIME: 14:59 Exam/Review of Systems Exam Vitals Vital Signs Date Temp Pulse Resp B/P (MAP) Pulse Ox O2 O2 Flow FiO2 Time Delivery Rate 11/08/18 98.2 63 16 156/70 98 Room Air 14:03 (98) Intake and Output 11/07/18 11/07/18 11/08/18 1515:00 23:00 07:00 IntakeIntake Total 790 ml 350 ml 250 ml OutputOutput Total 950 ml BalanceBalance -160 ml 350 ml 250 ml Results Result Diagram: 11/08/18 0508 11/08/18 0508 Results 24hrs Laboratory Tests Test 11/07/18 17:29 11/07/18 20:40 11/08/18 05:08 11/08/18 08:07 Bedside Glucose 125 155 108 White Blood Count 11.6 H Red Blood Count 3.71 L Hemoglobin 11.7 L Hematocrit 35.0 L Mean Corpuscular 94.3 Volume Mean Corpuscular 31.5 Hemoglobin Mean Corpuscular 33.4 Hemoglobin Concent Red Cell 14.8 H Distribution Width Platelet Count 139 L Mean Platelet Volume 12.7 H Immature 4.800 H Granulocytes % Neutrophils % 72.6 Segmented 74 Neutrophils % (Manual) Band Neutrophils % 1 (Manual) Lymphocytes % 9.5 L Lymphocytes % 9 L (Manual) Monocytes % 10.8 Monocytes % (Manual) 12 H Eosinophils % 1.6 Eosinophils % 2 (Manual) Basophils % 0.7 Myelocytes % 1 H (Manual) Promyelocytes % 1 H (Manual) Nucleated Red Blood 0.0 Cells % Immature 0.550 H Granulocytes # Neutrophils # 8.4 H Neutrophils # 8.6 H (Manual) Band Neutrophils # 0.1 Lymphocytes (Manual) 1.0 Lymphocytes # 1.1 Monocytes # 1.3 H Monocytes # (Manual) 1.3 H Eosinophils # 0.2 Basophils # 0.1 Myelocytes # 0.1 H Promyelocytes # 0.1 H Nucleated Red Blood 0.0 Cells # Toxic Granulation 1+ Platelet Estimate DECREASED Giant Platelets 1 H Poikilocytosis 2+ Ovalocytes 1+ Sodium Level 136 Potassium Level 4.1 Chloride Level 110 Carbon Dioxide Level 23 Anion Gap 3 L Blood Urea Nitrogen 22 H Creatinine 0.85 Est Glomerular > 60 Filtrat Rate mL/min Glucose Level 122 Calcium Level 7.9 L Total Bilirubin 0.9 Direct Bilirubin 0.00 Indirect Bilirubin 0.9 Aspartate Amino 29 Transf (AST/SGOT) Alanine 20 Aminotransferase (AL T/SGPT) Alkaline Phosphatase 70 Total Protein 6.2 Albumin 2.4 L Globulin 3.80 H Albumin/Globulin 0.63 Ratio Test 11/08/18 12:14 Bedside Glucose 164 Medications Medication Current Medications Lisinopril (Zestril) 40 mg DAILY PO Last administered on 11/08/18at 08:33; Admin Dose 40 MG; Start 11/05/18 at 09:00 IV Flush (NS 3 ml) 3 ml PER PROTOCOL IV ; Start 11/04/18 at 18:30 Ondansetron HCl (Zofran Inj) 4 mg Q6H PRN IV NAUSEA/VOMITING; Start 11/04/18 at 18:30 Acetaminophen (Tylenol Tab) 650 mg Q6H PRN PO .PAIN 1-3 OR TEMP; Start 11/04/18 at 18:30 Acetaminophen/ Hydrocodone Bitart ([place] (5/325)) 1 tab Q6H PRN PO .MOD PAIN 4- 6; Start 11/04/18 at 18:30 Acetaminophen/ Hydrocodone Bitart ([place] (5/325)) 2 tab Q6H PRN PO .SEVERE PAIN 7-10 Last administered on 11/07/18at 08:37; Admin Dose 2 TAB; Start 11/04/18 at 18:30 Morphine Sulfate (morphine) 2 mg Q4H PRN IV .SEVERE PAIN 7-10 Last administered on 11/08/18at 08:41; Admin Dose 2 MG; Start 11/04/18 at 18:30 Docusate Sodium (Colace) 100 mg Q12H PRN PO .CONSTIPATION; Start 11/04/18 at 18:30 Magnesium Hydroxide (Milk Of Mag) 30 ml DAILY PRN PO .CONSTIPATION; Start 11/04/18 at 18:30 Pantoprazole (Protonix Tab) 40 mg DAILY@06 PO Last administered on 11/08/18at 05:04; Admin Dose 40 MG; Start 11/05/18 at 06:00 Enoxaparin Sodium (Lovenox) 40 mg DAILY SC Last administered on 11/08/18at 08:34; Admin Dose 40 MG; Start 11/05/18 at 09:00 Vancomycin HCl (Vanco Iv Per Pharmacy) 1 ea NOTE XX ; Start 11/04/18 at 19:00 Insulin Aspart (Novolog Insulin Pen) NOVOLOG *MILD* ALGORITHM WITH MEALS BEDTIME SC Last administered on 11/08/18at 12:16; Admin Dose 1 UNIT; Start 11/04/18 at 21:00 Miscellaneous Information 1 ea NOTE XX ; Start 11/04/18 at 19:30 Glucose (Glutose) 15 gm Q15M PRN PO DECREASED GLUCOSE; Start 11/04/18 at 19:30 Glucose (Glutose) 22.5 gm Q15M PRN PO DECREASED GLUCOSE; Start 11/04/18 at 19:30 Dextrose (D50w Syringe) 25 ml Q15M PRN IV DECREASED GLUCOSE; Start 11/04/18 at 19:30 Dextrose (D50w Syringe) 50 ml Q15M PRN IV DECREASED GLUCOSE; Start 11/04/18 at 19:30 Glucagon (Glucagen) 1 mg Q15M PRN IM DECREASED GLUCOSE; Start 11/04/18 at 19:30 Glucose (Glutose) 15 gm Q15M PRN BUCCAL DECREASED GLUCOSE; Start 11/04/18 at 19:30 Miscellaneous Information Patients own medicat... BID@10,16 XX ; Start 11/05/18 at 10:00 Insulin Glargine (Lantus) 14 units DAILY@0800 SC Last administered on 11/08/18at 09:36; Admin Dose 14 UNITS; Start 11/05/18 at 13:30 Ceftriaxone Sodium 50 ml @ 100 mls/hr Q24H IVPB Last administered on 11/07/18at 14:54; Admin Dose 100 MLS/HR; Start 11/06/18 at 15:00 Terbinafine HCl (Lamisil) 250 mg BID PO Last administered on 11/08/18at 08:32; Admin Dose 250 MG; Start 11/07/18 at 11:30; Stop 11/14/18 at 11:29 Vancomycin HCl 250 ml @ 125 mls/hr Q12H IVPB ; Start 11/08/18 at 16:00 NICKY NOLAN Nov 08, 2018 14:59
[2018-11-08] MEDS: CEFTRIAXONE 1 GM/50 ML (PMX) 50 ML IVPB SCH (17:06)
[2018-11-08 20:00] VITALS: BP 154/70; PULSE 66; RESP 18
[2018-11-09 02:00] VITALS: BP 153/72; PULSE 61; RESP 18
[2018-11-09] MEDS: VANCOMYCIN 1 GM 250 ML IVPB SCH ×2 (05:07→15:11)
[2018-11-09] MEDS: PANTOPRAZOLE (EC) 40 MG TAB PO SCH (05:07)
[2018-11-09] MEDS: morphine 2 MG INJ IV PRN (06:54)
[2018-11-09] MEDS: INSULIN GLARGINE [LANTus] (100 UNITS/ML) SYG SC SCH (08:02)
[2018-11-09] MEDS: INSULIN ASPART [NOVOLOG] 3 ML PEN SC SCH ×4 (08:03→20:45)
[2018-11-09 08:36] VITALS: BP 165/75; PULSE 62; RESP 17
[2018-11-09] MEDS: ENOXAPARIN 40 MG/0.4 ML SYG SC SCH (09:13)
[2018-11-09] MEDS: TERBINAFINE 250 MG TAB PO SCH ×2 (09:13→20:45)
[2018-11-09] MEDS: LISINOPRIL 20 MG TAB PO SCH (09:14)
[2018-11-09 14:36] VITALS: BP 161/72; PULSE 69; RESP 18
--- NOTE | 2018-11-09 14:52 | PN ---
Date/Time of Note Date/Time of Note DATE: 11/09/18 TIME: 14:52 Objective Vitals Vital Signs Date Temp Pulse Resp B/P (MAP) Pulse Ox O2 O2 Flow FiO2 Time Delivery Rate 11/09/18 98.5 69 18 161/72 96 Room Air 14:36 (101) Intake and Output 11/08/18 11/08/18 11/09/18 1515:00 23:00 07:00 IntakeIntake Total 300 ml 600 ml OutputOutput Total 900 ml 450 ml BalanceBalance -600 ml 600 ml -450 ml Results Result Diagram: 11/09/18 1108 11/08/18 0508 Medications Medications Current Medications Lisinopril (Zestril) 40 mg DAILY PO Last administered on 11/09/18at 09:14; Admin Dose 40 MG; Start 11/05/18 at 09:00 IV Flush (NS 3 ml) 3 ml PER PROTOCOL IV ; Start 11/04/18 at 18:30 Ondansetron HCl (Zofran Inj) 4 mg Q6H PRN IV NAUSEA/VOMITING; Start 11/04/18 at 18:30 Acetaminophen (Tylenol Tab) 650 mg Q6H PRN PO .PAIN 1-3 OR TEMP; Start 11/04/18 at 18:30 Acetaminophen/ Hydrocodone Bitart ([place] (5/325)) 1 tab Q6H PRN PO .MOD PAIN 4- 6; Start 11/04/18 at 18:30 Acetaminophen/ Hydrocodone Bitart ([place] (5/325)) 2 tab Q6H PRN PO .SEVERE PAIN 7-10 Last administered on 11/07/18at 08:37; Admin Dose 2 TAB; Start 11/04/18 at 18:30 Morphine Sulfate (morphine) 2 mg Q4H PRN IV .SEVERE PAIN 7-10 Last administered on 11/09/18at 06:54; Admin Dose 2 MG; Start 11/04/18 at 18:30 Docusate Sodium (Colace) 100 mg Q12H PRN PO .CONSTIPATION; Start 11/04/18 at 18:30 Magnesium Hydroxide (Milk Of Mag) 30 ml DAILY PRN PO .CONSTIPATION; Start 11/04/18 at 18:30 Pantoprazole (Protonix Tab) 40 mg DAILY@06 PO Last administered on 11/09/18at 05:07; Admin Dose 40 MG; Start 11/05/18 at 06:00 Enoxaparin Sodium (Lovenox) 40 mg DAILY SC Last administered on 11/09/18at 09:13; Admin Dose 40 MG; Start 11/05/18 at 09:00 Vancomycin HCl (Vanco Iv Per Pharmacy) 1 ea NOTE XX ; Start 11/04/18 at 19:00 Insulin Aspart (Novolog Insulin Pen) NOVOLOG *MILD* ALGORITHM WITH MEALS BEDTIME SC Last administered on 11/09/18at 08:03; Admin Dose 1 UNIT; Start 11/04/18 at 21:00 Miscellaneous Information 1 ea NOTE XX ; Start 11/04/18 at 19:30 Glucose (Glutose) 15 gm Q15M PRN PO DECREASED GLUCOSE; Start 11/04/18 at 19:30 Glucose (Glutose) 22.5 gm Q15M PRN PO DECREASED GLUCOSE; Start 11/04/18 at 19:30 Dextrose (D50w Syringe) 25 ml Q15M PRN IV DECREASED GLUCOSE; Start 11/04/18 at 19:30 Dextrose (D50w Syringe) 50 ml Q15M PRN IV DECREASED GLUCOSE; Start 11/04/18 at 19:30 Glucagon (Glucagen) 1 mg Q15M PRN IM DECREASED GLUCOSE; Start 11/04/18 at 19:30 Glucose (Glutose) 15 gm Q15M PRN BUCCAL DECREASED GLUCOSE; Start 11/04/18 at 19:30 Miscellaneous Information Patients own medicat... BID@10,16 XX ; Start 11/05/18 at 10:00 Insulin Glargine (Lantus) 14 units DAILY@0800 SC Last administered on 11/09/18at 08:02; Admin Dose 14 UNITS; Start 11/05/18 at 13:30 Ceftriaxone Sodium 50 ml @ 100 mls/hr Q24H IVPB Last administered on 11/08/18at 17:06; Admin Dose 100 MLS/HR; Start 11/06/18 at 15:00 Terbinafine HCl (Lamisil) 250 mg BID PO Last administered on 11/09/18at 09:13; Admin Dose 250 MG; Start 11/07/18 at 11:30; Stop 11/14/18 at 11:29 Vancomycin HCl 250 ml @ 125 mls/hr Q12H IVPB Last administered on 11/09/18at 05:07; Admin Dose 125 MLS/HR; Start 11/08/18 at 16:00 VTE Prophylaxis Risk score (from Nsg)>0 risk: 5 SCD applied (from Ns): No SCD contraindication: other Lines/Catheters IV Catheter Type: Cardona in Place: No Assessment/Plan Hospital Course Subjective Patient states that his leg continues to improve Objective Physical exam General: Patient is laying in bed and answers questions appropriately Mentation: Patient is alert and oriented 4, Head: Normocephalic atraumatic Eyes: EOMI, pupils reactive to light Neck: Supple, nontender, midline Respiratory: Clear to auscultation bilaterally Cardiovascular: regular rate, no obvious murmurs Gastrointestinal: non-tender to palpation, bowel sounds heard. Neurological: Moves all extremities spontaneously Skin: Right lower extremity erythematous Assessment and plan Lower extremity cellulitis -Continue IV antibiotics -Infectious disease on board -MRI not conclusive for osteomyelitis however will defer to infectious disease recommendations -Resolving Diabetes mellitus type 2 -Insulin while in house Hypertension -Continue home medications History of hepatitis C -Follow-up outpatient with gastroenterology Early cirrhosis -Found on ultrasound -Please follow-up with gastroenterology in the outpatient setting Onychomycosis -Continue medication -Antifungal Disposition -Follow-up with infectious disease recommendations and continued evolution of lower extremity cellulitis before discharge back to home. DIANA DEAL Nov 09, 2018 14:52
[2018-11-09] MEDS: CEFTRIAXONE 1 GM/50 ML (PMX) 50 ML IVPB SCH (15:11)
--- NOTE | 2018-11-09 15:55 | CONS ---
Assessment/Plan Assessment/Plan Hospital Course (Demo Recall) Patient is alert feels good denies pain at the moment no fevers overnight WBC 13.5 BUN 34 creatinine 1.23 Antimicrobials: Vancomycin, Zosyn Lower extremity CT revealed ostial lysis of the toes and distal aspect of the fifth metatarsal with adjacent severe soft tissue swelling. Findings are concerning for osteomyelitis Physical examination: This is a well-nourished well-developed elderly white man who is alert in no distress. Head atraumatic normocephalic sclera nonicteric vehicle mucosa dry neck is supple chest rise symmetrical breath sounds clear. Heart: S1-S2. Abdomen soft bowel sounds present. Extremities: Right lower extremity with significant swelling erythema bruising above knee. Patient has a open wound on the calf Assessment: 1. S/p sepsis 2. Right lower extremity cellulitis, rule out osteomyelitis 3. Diabetes 4. MICHELLE Plan: Right lower extremity looks better but still with significant swelling, will order compression bandages, continue elevation and abx Consultation Date/Type/Reason Admit Date/Time Nov 04, 2018 at 18:28 Initial Consult Date Type of Consult id Date/Time of Note DATE: 11/09/18 TIME: 15:51 Exam/Review of Systems Exam Vitals Vital Signs Date Temp Pulse Resp B/P (MAP) Pulse Ox O2 O2 Flow FiO2 Time Delivery Rate 11/09/18 98.5 69 18 161/72 96 Room Air 14:36 (101) Intake and Output 11/08/18 11/08/18 11/09/18 1515:00 23:00 07:00 IntakeIntake Total 300 ml 600 ml OutputOutput Total 900 ml 450 ml BalanceBalance -600 ml 600 ml -450 ml Results Result Diagram: 11/09/18 1108 11/08/18 0508 Results 24hrs Laboratory Tests Test 11/08/18 17:05 11/08/18 21:00 11/09/18 07:59 11/09/18 11:08 Bedside Glucose 101 143 143 White Blood Count 11.8 H Red Blood Count 3.59 L Hemoglobin 11.5 L Hematocrit 34.2 L Mean Corpuscular 95.3 Volume Mean Corpuscular 32.0 Hemoglobin Mean Corpuscular 33.6 Hemoglobin Concent Red Cell 14.7 H Distribution Width Platelet Count 152 Mean Platelet Volume 11.9 H Immature 5.400 H Granulocytes % Neutrophils % 72.6 Segmented 68 Neutrophils % (Manual) Band Neutrophils % 1 (Manual) Lymphocytes % 9.1 L Lymphocytes % 8 L (Manual) Reactive Lymphocytes 1 H % (Manual) Monocytes % 10.1 Monocytes % (Manual) 12 H Eosinophils % 1.4 Eosinophils % 1 (Manual) Basophils % 1.4 Metamyelocytes % 3 H (manual) Myelocytes % 4 H (Manual) Promyelocytes % 2 H (Manual) Nucleated Red Blood 0.0 Cells % Immature 0.640 H Granulocytes # Neutrophils # 8.6 H Neutrophils # 8.0 H (Manual) Band Neutrophils # 0.1 Lymphocytes (Manual) 0.9 Lymphocytes # 1.1 Reactive Lymphocytes 0.1 H # Monocytes # 1.2 H Monocytes # (Manual) 1.4 H Eosinophils # 0.2 Basophils # 0.2 H Metamyelocytes # 0.3 H Myelocytes # 0.4 H Promyelocytes # 0.2 H Nucleated Red Blood 0.0 Cells # Platelet Estimate NORMAL Test 11/09/18 12:51 Bedside Glucose 127 Medications Medication Current Medications Lisinopril (Zestril) 40 mg DAILY PO Last administered on 11/09/18at 09:14; Admin Dose 40 MG; Start 11/05/18 at 09:00 IV Flush (NS 3 ml) 3 ml PER PROTOCOL IV ; Start 11/04/18 at 18:30 Ondansetron HCl (Zofran Inj) 4 mg Q6H PRN IV NAUSEA/VOMITING; Start 11/04/18 at 18:30 Acetaminophen (Tylenol Tab) 650 mg Q6H PRN PO .PAIN 1-3 OR TEMP; Start 11/04/18 at 18:30 Acetaminophen/ Hydrocodone Bitart ([place] (5/325)) 1 tab Q6H PRN PO .MOD PAIN 4- 6; Start 11/04/18 at 18:30 Acetaminophen/ Hydrocodone Bitart ([place] (5/325)) 2 tab Q6H PRN PO .SEVERE PAIN 7-10 Last administered on 11/07/18at 08:37; Admin Dose 2 TAB; Start 11/04/18 at 18:30 Morphine Sulfate (morphine) 2 mg Q4H PRN IV .SEVERE PAIN 7-10 Last administered on 11/09/18at 06:54; Admin Dose 2 MG; Start 11/04/18 at 18:30 Docusate Sodium (Colace) 100 mg Q12H PRN PO .CONSTIPATION; Start 11/04/18 at 18:30 Magnesium Hydroxide (Milk Of Mag) 30 ml DAILY PRN PO .CONSTIPATION; Start 11/04/18 at 18:30 Pantoprazole (Protonix Tab) 40 mg DAILY@06 PO Last administered on 11/09/18at 05:07; Admin Dose 40 MG; Start 11/05/18 at 06:00 Enoxaparin Sodium (Lovenox) 40 mg DAILY SC Last administered on 11/09/18at 09:13; Admin Dose 40 MG; Start 11/05/18 at 09:00 Vancomycin HCl (Vanco Iv Per Pharmacy) 1 ea NOTE XX ; Start 11/04/18 at 19:00 Insulin Aspart (Novolog Insulin Pen) NOVOLOG *MILD* ALGORITHM WITH MEALS BEDTIME SC Last administered on 11/09/18at 08:03; Admin Dose 1 UNIT; Start 11/04/18 at 21:00 Miscellaneous Information 1 ea NOTE XX ; Start 11/04/18 at 19:30 Glucose (Glutose) 15 gm Q15M PRN PO DECREASED GLUCOSE; Start 11/04/18 at 19:30 Glucose (Glutose) 22.5 gm Q15M PRN PO DECREASED GLUCOSE; Start 11/04/18 at 19:30 Dextrose (D50w Syringe) 25 ml Q15M PRN IV DECREASED GLUCOSE; Start 11/04/18 at 19:30 Dextrose (D50w Syringe) 50 ml Q15M PRN IV DECREASED GLUCOSE; Start 11/04/18 at 19:30 Glucagon (Glucagen) 1 mg Q15M PRN IM DECREASED GLUCOSE; Start 11/04/18 at 19:30 Glucose (Glutose) 15 gm Q15M PRN BUCCAL DECREASED GLUCOSE; Start 11/04/18 at 19:30 Miscellaneous Information Patients own medicat... BID@10,16 XX ; Start 11/05/18 at 10:00 Insulin Glargine (Lantus) 14 units DAILY@0800 SC Last administered on 11/09/18at 08:02; Admin Dose 14 UNITS; Start 11/05/18 at 13:30 Ceftriaxone Sodium 50 ml @ 100 mls/hr Q24H IVPB Last administered on 11/09/18at 15:11; Admin Dose 100 MLS/HR; Start 11/06/18 at 15:00 Terbinafine HCl (Lamisil) 250 mg BID PO Last administered on 11/09/18at 09:13; Admin Dose 250 MG; Start 11/07/18 at 11:30; Stop 11/14/18 at 11:29 Vancomycin HCl 1.25 gm/Sodium Chloride 250 ml @ 83.333 mls/ hr Q12H IVPB ; Start 11/10/18 at 04:00 HEIDY CORTEZ NP Nov 09, 2018 15:54
[2018-11-09 19:52] VITALS: BP 161/72; PULSE 70; RESP 20
[2018-11-10 02:42] VITALS: BP 145/69; PULSE 66; RESP 18
[2018-11-10] MEDS: VANCOMYCIN HCL 1.25 GM in SOD CHLORIDE 0.9% 250 ML IVPB SCH ×2 (04:54→17:48)
[2018-11-10] MEDS: PANTOPRAZOLE (EC) 40 MG TAB PO SCH (04:54)
[2018-11-10] MEDS: INSULIN ASPART [NOVOLOG] 3 ML PEN SC SCH ×4 (08:00→20:04)
[2018-11-10 08:07] VITALS: BP 168/73; PULSE 76; RESP 18
[2018-11-10] MEDS: INSULIN GLARGINE [LANTus] (100 UNITS/ML) SYG SC SCH (08:18)
[2018-11-10] MEDS: TERBINAFINE 250 MG TAB PO SCH ×2 (09:25→20:04)
[2018-11-10] MEDS: LISINOPRIL 20 MG TAB PO SCH (09:25)
[2018-11-10] MEDS: ENOXAPARIN 40 MG/0.4 ML SYG SC SCH (09:29)
[2018-11-10] MEDS: morphine 2 MG INJ IV PRN (09:30)
--- NOTE | 2018-11-10 12:41 | PN ---
Date/Time of Note Date/Time of Note DATE: 11/10/18 TIME: 12:40 Objective Vitals Vital Signs Date Temp Pulse Resp B/P (MAP) Pulse Ox O2 O2 Flow FiO2 Time Delivery Rate 11/10/18 98.3 76 18 168/73 94 08:07 (104) 11/10/18 Room Air 02:42 Intake and Output 11/09/18 11/09/18 11/10/18 1515:00 23:00 07:00 IntakeIntake Total 490 ml 820 ml 125 ml OutputOutput Total 450 ml 550 ml 300 ml BalanceBalance 40 ml 270 ml -175 ml Results Result Diagram: 11/10/18 0900 11/10/18 0900 Medications Medications Current Medications Lisinopril (Zestril) 40 mg DAILY PO Last administered on 11/10/18at 09:25; Admin Dose 40 MG; Start 11/05/18 at 09:00 IV Flush (NS 3 ml) 3 ml PER PROTOCOL IV ; Start 11/04/18 at 18:30 Ondansetron HCl (Zofran Inj) 4 mg Q6H PRN IV NAUSEA/VOMITING; Start 11/04/18 at 18:30 Acetaminophen (Tylenol Tab) 650 mg Q6H PRN PO .PAIN 1-3 OR TEMP; Start 11/04/18 at 18:30 Acetaminophen/ Hydrocodone Bitart ([place] (5/325)) 1 tab Q6H PRN PO .MOD PAIN 4- 6; Start 11/04/18 at 18:30 Acetaminophen/ Hydrocodone Bitart ([place] (5/325)) 2 tab Q6H PRN PO .SEVERE PAIN 7-10 Last administered on 11/07/18at 08:37; Admin Dose 2 TAB; Start 11/04/18 at 18:30 Morphine Sulfate (morphine) 2 mg Q4H PRN IV .SEVERE PAIN 7-10 Last administered on 11/10/18at 09:30; Admin Dose 2 MG; Start 11/04/18 at 18:30 Docusate Sodium (Colace) 100 mg Q12H PRN PO .CONSTIPATION; Start 11/04/18 at 18:30 Magnesium Hydroxide (Milk Of Mag) 30 ml DAILY PRN PO .CONSTIPATION; Start 11/04/18 at 18:30 Pantoprazole (Protonix Tab) 40 mg DAILY@06 PO Last administered on 11/10/18at 04:54; Admin Dose 40 MG; Start 11/05/18 at 06:00 Enoxaparin Sodium (Lovenox) 40 mg DAILY SC Last administered on 11/10/18at 09:29; Admin Dose 40 MG; Start 11/05/18 at 09:00 Vancomycin HCl (Vanco Iv Per Pharmacy) 1 ea NOTE XX ; Start 11/04/18 at 19:00 Insulin Aspart (Novolog Insulin Pen) NOVOLOG *MILD* ALGORITHM WITH MEALS BEDTIME SC Last administered on 11/10/18at 12:19; Admin Dose 1 UNIT; Start 11/04/18 at 21:00 Miscellaneous Information 1 ea NOTE XX ; Start 11/04/18 at 19:30 Glucose (Glutose) 15 gm Q15M PRN PO DECREASED GLUCOSE; Start 11/04/18 at 19:30 Glucose (Glutose) 22.5 gm Q15M PRN PO DECREASED GLUCOSE; Start 11/04/18 at 19:30 Dextrose (D50w Syringe) 25 ml Q15M PRN IV DECREASED GLUCOSE; Start 11/04/18 at 19:30 Dextrose (D50w Syringe) 50 ml Q15M PRN IV DECREASED GLUCOSE; Start 11/04/18 at 19:30 Glucagon (Glucagen) 1 mg Q15M PRN IM DECREASED GLUCOSE; Start 11/04/18 at 19:30 Glucose (Glutose) 15 gm Q15M PRN BUCCAL DECREASED GLUCOSE; Start 11/04/18 at 19:30 Miscellaneous Information Patients own medicat... BID@10,16 XX ; Start 11/05/18 at 10:00 Insulin Glargine (Lantus) 14 units DAILY@0800 SC Last administered on 11/10/18at 08:18; Admin Dose 14 UNITS; Start 11/05/18 at 13:30 Ceftriaxone Sodium 50 ml @ 100 mls/hr Q24H IVPB Last administered on 11/09/18at 15:11; Admin Dose 100 MLS/HR; Start 11/06/18 at 15:00 Terbinafine HCl (Lamisil) 250 mg BID PO Last administered on 11/10/18at 09:25; Admin Dose 250 MG; Start 11/07/18 at 11:30; Stop 11/14/18 at 11:29 Vancomycin HCl 1.25 gm/Sodium Chloride 250 ml @ 83.333 mls/ hr Q12H IVPB Last administered on 11/10/18at 04:54; Admin Dose 83.333 MLS/HR; Start 11/10/18 at 04:00 Miscellaneous Information (*Rx Drug Level Order Reminder*) VANCO TR AT 1500 1500 ONCE XX ; Start 11/11/18 at 15:00; Stop 11/11/18 at 15:01 VTE Prophylaxis Risk score (from [facility] [place]0 risk: 4 SCD applied (from [facility] [place]): No SCD contraindication: other Lines/Catheters IV Catheter Type: Cardona in Place: No Assessment/Plan Hospital Course Subjective Patient states that his leg continues to improve Objective Physical exam General: Patient is laying in bed and answers questions appropriately Mentation: Patient is alert and oriented 4, Head: Normocephalic atraumatic Eyes: EOMI, pupils reactive to light Neck: Supple, nontender, midline Respiratory: Clear to auscultation bilaterally Cardiovascular: regular rate, no obvious murmurs Gastrointestinal: non-tender to palpation, bowel sounds heard. Neurological: Moves all extremities spontaneously Skin: Right lower extremity erythematous Assessment and plan Lower extremity cellulitis -Continue IV antibiotics -Infectious disease on board -MRI not conclusive for osteomyelitis however will defer to infectious disease recommendations -Resolving Diabetes mellitus type 2 -Insulin while in house Hypertension -Continue home medications History of hepatitis C -Follow-up outpatient with gastroenterology Early cirrhosis -Found on ultrasound -Please follow-up with gastroenterology in the outpatient setting Onychomycosis -Continue medication -Antifungal Disposition -Follow-up with infectious disease recommendations and continued evolution of lower extremity cellulitis before discharge back to home. DIANA DEAL Nov 10, 2018 12:40
[2018-11-10 14:07] VITALS: BP 163/73; PULSE 67; RESP 16
--- NOTE | 2018-11-10 15:16 | CONS ---
Assessment/Plan Assessment/Plan Hospital Course (Demo Recall) Awake looks comfortable no fevers overnight. Right lower extremity swelling slightly better, erythema improved Antimicrobials: Vancomycin, Rocephin Lower extremity CT revealed ostial lysis of the toes and distal aspect of the fifth metatarsal with adjacent severe soft tissue swelling. Findings are concerning for osteomyelitis Physical examination: This is a well-nourished well-developed elderly white man who is alert in no distress. Head atraumatic normocephalic sclera nonicteric vehicle mucosa dry neck is supple chest rise symmetrical breath sounds clear. Heart: S1-S2. Abdomen soft bowel sounds present. Extremities: Right lower extremity with significant swelling erythema bruising above knee. Patient has a open wound on the calf Assessment: 1. S/p sepsis 2. Right lower extremity cellulitis, rule out osteomyelitis 3. Diabetes 4. MICHELLE Plan: Continues to improve, anticipate dc on oral Bactrim and Keflex for 7-10 more days, continue compression dressings Consultation Date/Type/Reason Admit Date/Time Nov 04, 2018 at 18:28 Initial Consult Date Type of Consult id Date/Time of Note DATE: 11/10/18 TIME: 15:10 Exam/Review of Systems Exam Vitals Vital Signs Date Temp Pulse Resp B/P (MAP) Pulse Ox O2 O2 Flow FiO2 Time Delivery Rate 11/10/18 98.8 67 16 163/73 97 14:07 (103) 11/10/18 Room Air 02:42 Intake and Output 11/09/18 11/09/18 11/10/18 1515:00 23:00 07:00 IntakeIntake Total 490 ml 820 ml 125 ml OutputOutput Total 450 ml 550 ml 300 ml BalanceBalance 40 ml 270 ml -175 ml Results Result Diagram: 11/10/18 0900 11/10/18 0900 Results 24hrs Laboratory Tests Test 11/09/18 16:55 11/09/18 20:44 11/10/18 08:15 11/10/18 09:00 Bedside Glucose 128 154 109 White Blood Count 11.0 H Red Blood Count 3.82 L Hemoglobin 12.1 L Hematocrit 36.5 L Mean Corpuscular 95.5 Volume Mean Corpuscular 31.7 Hemoglobin Mean Corpuscular 33.2 Hemoglobin Concent Red Cell 14.9 H Distribution Width Platelet Count 153 Mean Platelet Volume 11.9 H Immature 6.100 H Granulocytes % Neutrophils % 71.2 Lymphocytes % 10.8 L Monocytes % 9.0 Eosinophils % 2.0 Basophils % 0.9 Nucleated Red Blood 0.0 Cells % Immature 0.670 H Granulocytes # Neutrophils # 7.9 H Lymphocytes # 1.2 Monocytes # 1.0 H Eosinophils # 0.2 Basophils # 0.1 Nucleated Red Blood 0.0 Cells # Sodium Level 137 Potassium Level 4.1 Chloride Level 110 Carbon Dioxide Level 23 Anion Gap 4 L Blood Urea Nitrogen 16 Creatinine 0.86 Est Glomerular > 60 Filtrat Rate mL/min Glucose Level 148 Calcium Level 8.0 L Phosphorus Level 3.5 Magnesium Level 1.8 Test 11/10/18 12:13 Bedside Glucose 141 Medications Medication Current Medications Lisinopril (Zestril) 40 mg DAILY PO Last administered on 11/10/18at 09:25; Admin Dose 40 MG; Start 11/05/18 at 09:00 IV Flush (NS 3 ml) 3 ml PER PROTOCOL IV ; Start 11/04/18 at 18:30 Ondansetron HCl (Zofran Inj) 4 mg Q6H PRN IV NAUSEA/VOMITING; Start 11/04/18 at 18:30 Acetaminophen (Tylenol Tab) 650 mg Q6H PRN PO .PAIN 1-3 OR TEMP; Start 11/04/18 at 18:30 Acetaminophen/ Hydrocodone Bitart ([place] (5/325)) 1 tab Q6H PRN PO .MOD PAIN 4- 6; Start 11/04/18 at 18:30 Acetaminophen/ Hydrocodone Bitart ([place] (5/325)) 2 tab Q6H PRN PO .SEVERE PAIN 7-10 Last administered on 11/07/18at 08:37; Admin Dose 2 TAB; Start 11/04/18 at 18:30 Morphine Sulfate (morphine) 2 mg Q4H PRN IV .SEVERE PAIN 7-10 Last administered on 11/10/18at 09:30; Admin Dose 2 MG; Start 11/04/18 at 18:30 Docusate Sodium (Colace) 100 mg Q12H PRN PO .CONSTIPATION; Start 11/04/18 at 18:30 Magnesium Hydroxide (Milk Of Mag) 30 ml DAILY PRN PO .CONSTIPATION; Start 11/04/18 at 18:30 Pantoprazole (Protonix Tab) 40 mg DAILY@06 PO Last administered on 11/10/18at 04:54; Admin Dose 40 MG; Start 11/05/18 at 06:00 Enoxaparin Sodium (Lovenox) 40 mg DAILY SC Last administered on 11/10/18at 09:29; Admin Dose 40 MG; Start 11/05/18 at 09:00 Vancomycin HCl (Vanco Iv Per Pharmacy) 1 ea NOTE XX ; Start 11/04/18 at 19:00 Insulin Aspart (Novolog Insulin Pen) NOVOLOG *MILD* ALGORITHM WITH MEALS BEDTIME SC Last administered on 11/10/18at 12:19; Admin Dose 1 UNIT; Start 11/04/18 at 21:00 Miscellaneous Information 1 ea NOTE XX ; Start 11/04/18 at 19:30 Glucose (Glutose) 15 gm Q15M PRN PO DECREASED GLUCOSE; Start 11/04/18 at 19:30 Glucose (Glutose) 22.5 gm Q15M PRN PO DECREASED GLUCOSE; Start 11/04/18 at 19:30 Dextrose (D50w Syringe) 25 ml Q15M PRN IV DECREASED GLUCOSE; Start 11/04/18 at 19:30 Dextrose (D50w Syringe) 50 ml Q15M PRN IV DECREASED GLUCOSE; Start 11/04/18 at 19:30 Glucagon (Glucagen) 1 mg Q15M PRN IM DECREASED GLUCOSE; Start 11/04/18 at 19:30 Glucose (Glutose) 15 gm Q15M PRN BUCCAL DECREASED GLUCOSE; Start 11/04/18 at 19:30 Miscellaneous Information Patients own medicat... BID@10,16 XX ; Start 11/05/18 at 10:00 Insulin Glargine (Lantus) 14 units DAILY@0800 SC Last administered on 11/10/18at 08:18; Admin Dose 14 UNITS; Start 11/05/18 at 13:30 Ceftriaxone Sodium 50 ml @ 100 mls/hr Q24H IVPB Last administered on 11/09/18at 15:11; Admin Dose 100 MLS/HR; Start 11/06/18 at 15:00 Terbinafine HCl (Lamisil) 250 mg BID PO Last administered on 11/10/18at 09:25; Admin Dose 250 MG; Start 11/07/18 at 11:30; Stop 11/14/18 at 11:29 Vancomycin HCl 1.25 gm/Sodium Chloride 250 ml @ 83.333 mls/ hr Q12H IVPB Last administered on 11/10/18at 04:54; Admin Dose 83.333 MLS/HR; Start 11/10/18 at 04:00 Miscellaneous Information (*Rx Drug Level Order Reminder*) VANCO TR AT 1500 1500 ONCE XX ; Start 11/11/18 at 15:00; Stop 11/11/18 at 15:01 HEIDY CORTEZ NP Nov 10, 2018 15:16
[2018-11-10] MEDS: CEFTRIAXONE 1 GM/50 ML (PMX) 50 ML IVPB SCH (16:35)
[2018-11-10 20:00] VITALS: BP 177/79; PULSE 67; RESP 19
[2018-11-11 02:00] VITALS: BP 165/73; PULSE 55; RESP 18
[2018-11-11] MEDS: VANCOMYCIN HCL 1.25 GM in SOD CHLORIDE 0.9% 250 ML IVPB SCH (04:38)
[2018-11-11] MEDS: PANTOPRAZOLE (EC) 40 MG TAB PO SCH (06:00)
[2018-11-11 07:44] VITALS: BP 173/78; PULSE 63; RESP 16
[2018-11-11] MEDS: INSULIN ASPART [NOVOLOG] 3 ML PEN SC SCH ×4 (08:00→20:58)
[2018-11-11] MEDS: LISINOPRIL 20 MG TAB PO SCH (08:33)
[2018-11-11] MEDS: TERBINAFINE 250 MG TAB PO SCH ×2 (08:33→20:58)
[2018-11-11] MEDS: ENOXAPARIN 40 MG/0.4 ML SYG SC SCH (08:35)
[2018-11-11] MEDS: INSULIN GLARGINE [LANTus] (100 UNITS/ML) SYG SC SCH (08:36)
[2018-11-11] MEDS: TRIMETHOPRIM/SULFAMETHOX (DS) TAB PO SCH ×2 (09:35→20:58)
[2018-11-11] MEDS: AMLODIPINE 5 MG TAB PO SCH (09:36)
[2018-11-11 10:00] VITALS: BP 152/65; PULSE 67
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
[2018-11-11] MEDS: CEPHALEXIN 500 MG CAP PO SCH ×3 (11:54→23:28)
[2018-11-11] MEDS: morphine 2 MG INJ IV PRN (13:37)
--- NOTE | 2018-11-11 13:37 | PN ---
Date/Time of Note Date/Time of Note DATE: 11/11/18 TIME: 13:36 Objective Vitals Vital Signs Date Temp Pulse Resp B/P (MAP) Pulse Ox O2 O2 Flow FiO2 Time Delivery Rate 11/11/18 67 152/65 10:00 (94) 11/11/18 98.2 16 97 07:44 11/10/18 Room Air 02:42 Intake and Output 11/10/18 11/10/18 11/11/18 1515:00 23:00 07:00 IntakeIntake Total 725 ml 1440 ml 300 ml OutputOutput Total 800 ml 500 ml BalanceBalance 725 ml 640 ml -200 ml Results Result Diagram: 11/11/1860411/11/18604 Medications Medications Current Medications Lisinopril (Zestril) 40 mg DAILY PO Last administered on 11/11/18at 08:33; Admin Dose 40 MG; Start 11/05/18 at 09:00 IV Flush (NS 3 ml) 3 ml PER PROTOCOL IV ; Start 11/04/18 at 18:30 Ondansetron HCl (Zofran Inj) 4 mg Q6H PRN IV NAUSEA/VOMITING; Start 11/04/18 at 18:30 Acetaminophen (Tylenol Tab) 650 mg Q6H PRN PO .PAIN 1-3 OR TEMP; Start 11/04/18 at 18:30 Acetaminophen/ Hydrocodone Bitart ([place] (5/325)) 1 tab Q6H PRN PO .MOD PAIN 4- 6 Last administered on 11/10/18at 20:01; Admin Dose 1 TAB; Start 11/04/18 at 18:30 Acetaminophen/ Hydrocodone Bitart ([place] (5/325)) 2 tab Q6H PRN PO .SEVERE PAIN 7-10 Last administered on 11/07/18at 08:37; Admin Dose 2 TAB; Start 11/04/18 at 18:30 Morphine Sulfate (morphine) 2 mg Q4H PRN IV .SEVERE PAIN 7-10 Last administered on 11/10/18at 09:30; Admin Dose 2 MG; Start 11/04/18 at 18:30 Docusate Sodium (Colace) 100 mg Q12H PRN PO .CONSTIPATION; Start 11/04/18 at 18:30 Magnesium Hydroxide (Milk Of Mag) 30 ml DAILY PRN PO .CONSTIPATION; Start 11/04/18 at 18:30 Pantoprazole (Protonix Tab) 40 mg DAILY@06 PO Last administered on 11/11/18at 06:00; Admin Dose 40 MG; Start 11/05/18 at 06:00 Enoxaparin Sodium (Lovenox) 40 mg DAILY SC Last administered on 11/11/18at 08:35; Admin Dose 40 MG; Start 11/05/18 at 09:00 Insulin Aspart (Novolog Insulin Pen) NOVOLOG *MILD* ALGORITHM WITH MEALS BEDTIME SC Last administered on 11/11/18at 11:55; Admin Dose 1 UNIT; Start 11/04/18 at 21:00 Miscellaneous Information 1 ea NOTE XX ; Start 11/04/18 at 19:30 Glucose (Glutose) 15 gm Q15M PRN PO DECREASED GLUCOSE; Start 11/04/18 at 19:30 Glucose (Glutose) 22.5 gm Q15M PRN PO DECREASED GLUCOSE; Start 11/04/18 at 19:30 Dextrose (D50w Syringe) 25 ml Q15M PRN IV DECREASED GLUCOSE; Start 11/04/18 at 19:30 Dextrose (D50w Syringe) 50 ml Q15M PRN IV DECREASED GLUCOSE; Start 11/04/18 at 19:30 Glucagon (Glucagen) 1 mg Q15M PRN IM DECREASED GLUCOSE; Start 11/04/18 at 19:30 Glucose (Glutose) 15 gm Q15M PRN BUCCAL DECREASED GLUCOSE; Start 11/04/18 at 19:30 Miscellaneous Information Patients own medicat... BID@10,16 XX ; Start 11/05/18 at 10:00 Insulin Glargine (Lantus) 14 units DAILY@0800 SC Last administered on 11/11/18at 08:36; Admin Dose 14 UNITS; Start 11/05/18 at 13:30 Terbinafine HCl (Lamisil) 250 mg BID PO Last administered on 11/11/18at 08:33; Admin Dose 250 MG; Start 11/07/18 at 11:30; Stop 11/14/18 at 11:29 Amlodipine Besylate (Norvasc) 5 mg DAILY PO Last administered on 11/11/18at 09:36; Admin Dose 5 MG; Start 11/11/18 at 09:30 Trimethoprim/ Sulfamethoxazole (Bactrim (Ds)) 1 tab BID PO Last administered on 11/11/18at 09:35; Admin Dose 1 TAB; Start 11/11/18 at 09:30 Cephalexin (Keflex) 500 mg Q6 PO Last administered on 11/11/18at 11:54; Admin Dose 500 MG; Start 11/11/18 at 12:00 VTE Prophylaxis Risk score (from Ns)>0 risk: 4 SCD applied (from [facility] [place]): No SCD contraindication: other Lines/Catheters IV Catheter Type: Cardona in Place: No Assessment/Plan Hospital Course Subjective Patient states that his leg continues to improve Objective Physical exam General: Patient is laying in bed and answers questions appropriately Mentation: Patient is alert and oriented 4, Head: Normocephalic atraumatic Eyes: EOMI, pupils reactive to light Neck: Supple, nontender, midline Respiratory: Clear to auscultation bilaterally Cardiovascular: regular rate, no obvious murmurs Gastrointestinal: non-tender to palpation, bowel sounds heard. Neurological: Moves all extremities spontaneously Skin: Right lower extremity erythematous Assessment and plan Lower extremity cellulitis -Now changing antibiotics to oral -Infectious disease on board -MRI not conclusive for osteomyelitis -Resolving Diabetes mellitus type 2 -Insulin while in house Hypertension -Continue home medications History of hepatitis C -Follow-up outpatient with gastroenterology Early cirrhosis -Found on ultrasound -Please follow-up with gastroenterology in the outpatient setting, discussed this with patient Onychomycosis -Continue medication -Antifungal Chronic podiatry issues -Podiatry consulted, patient will see machine sweeper brush maker in the outpatient setting for chronic issues Disposition - ensure patient is able to tolerate p.o. antibiotic before discharge with home health wound care likely tomorrow. DIANA DEAL Nov 11, 2018 13:37
[2018-11-11 14:19] VITALS: BP 118/56; PULSE 68; RESP 16
--- NOTE | 2018-11-11 15:44 | CONS ---
Assessment/Plan Assessment/Plan Hospital Course (Demo Recall) Alert feels better looks comfortable, no fevers overnight Antimicrobials: Vancomycin, Rocephin Lower extremity CT revealed ostial lysis of the toes and distal aspect of the fifth metatarsal with adjacent severe soft tissue swelling. Findings are concerning for osteomyelitis Physical examination: This is a well-nourished well-developed elderly white man who is alert in no distress. Head atraumatic normocephalic sclera nonicteric vehicle mucosa dry neck is supple chest rise symmetrical breath sounds clear. Heart: S1-S2. Abdomen soft bowel sounds present. Extremities: Right lower ex tremity with significant swelling erythema bruising above knee. Patient has a open wound on the calf Assessment: 1. S/p sepsis 2. Right lower extremity cellulitis, improving 3. Diabetes 4. MICHELLE Plan: Stable, wbc normalized, podiatry recommendations noted, anticipate dc on oral Bactrim and Keflex for 7-10 more days, continue compression dressings, follow at the wound clinic Consultation Date/Type/Reason Admit Date/Time Nov 04, 2018 at 18:28 Initial Consult Date Type of Consult id Date/Time of Note DATE: 11/11/18 TIME: 15:43 Exam/Review of Systems Exam Vitals Vital Signs Date Temp Pulse Resp B/P (MAP) Pulse Ox O2 O2 Flow FiO2 Time Delivery Rate 11/11/18 98.0 68 16 118/56 98 14:19 (76) 11/10/18 Room Air 02:42 Intake and Output 11/10/18 11/10/18 11/11/18 1515:00 23:00 07:00 IntakeIntake Total 725 ml 1440 ml 300 ml OutputOutput Total 800 ml 500 ml BalanceBalance 725 ml 640 ml -200 ml Results Result Diagram: 11/11/18 0605 11/11/18 0605 Results 24hrs Laboratory Tests Test 11/10/18 17:50 11/10/18 20:04 11/11/18 06:05 11/11/18 08:28 Bedside Glucose 139 105 93 White Blood Count 9.4 Red Blood Count 3.78 L Hemoglobin 11.9 L Hematocrit 36.5 L Mean Corpuscular 96.6 Volume Mean Corpuscular 31.5 Hemoglobin Mean Corpuscular 32.6 Hemoglobin Concent Red Cell 14.8 H Distribution Width Platelet Count 141 Mean Platelet Volume 11.8 H Immature 6.000 H Granulocytes % Neutrophils % 69.2 Segmented 76 Neutrophils % (Manual) Band Neutrophils % 1 (Manual) Lymphocytes % 12.2 L Lymphocytes % 9 L (Manual) Reactive Lymphocytes 2 H % (Manual) Monocytes % 8.9 Monocytes % (Manual) 5 Eosinophils % 2.6 Eosinophils % 4 (Manual) Basophils % 1.1 Myelocytes % 2 H (Manual) Promyelocytes % 1 H (Manual) Nucleated Red Blood 0.0 Cells % Immature 0.570 H Granulocytes # Neutrophils # 6.5 Neutrophils # 7.1 (Manual) Band Neutrophils # 0.0 Lymphocytes (Manual) 0.8 Lymphocytes # 1.2 Reactive Lymphocytes 0.1 H # Monocytes # 0.8 Monocytes # (Manual) 0.4 Eosinophils # 0.3 Basophils # 0.1 Myelocytes # 0.1 H Promyelocytes # 0.0 Nucleated Red Blood 0.0 Cells # Platelet Estimate NORMAL Giant Platelets 1 H Polychromasia 1+ Poikilocytosis 2+ Sodium Level 139 Potassium Level 4.4 Chloride Level 111 H Carbon Dioxide Level 22 Anion Gap 6 Blood Urea Nitrogen 16 Creatinine 0.82 Est Glomerular > 60 Filtrat Rate mL/min Glucose Level 99 # Calcium Level 7.8 L Phosphorus Level 3.7 Magnesium Level 1.8 Test 11/11/18 11:51 Bedside Glucose 172 Medications Medication Current Medications Lisinopril (Zestril) 40 mg DAILY PO Last administered on 11/11/18at 08:33; Admin Dose 40 MG; Start 11/05/18 at 09:00 IV Flush (NS 3 ml) 3 ml PER PROTOCOL IV ; Start 11/04/18 at 18:30 Ondansetron HCl (Zofran Inj) 4 mg Q6H PRN IV NAUSEA/VOMITING; Start 11/04/18 at 18:30 Acetaminophen (Tylenol Tab) 650 mg Q6H PRN PO .PAIN 1-3 OR TEMP; Start 11/04/18 at 18:30 Acetaminophen/ Hydrocodone Bitart ([place] (5/325)) 1 tab Q6H PRN PO .MOD PAIN 4- 6 Last administered on 11/10/18at 20:01; Admin Dose 1 TAB; Start 11/04/18 at 18:30 Acetaminophen/ Hydrocodone Bitart ([place] (5/325)) 2 tab Q6H PRN PO .SEVERE PAIN 7-10 Last administered on 11/07/18 08:37; Admin Dose 2 TAB; Start 11/04/18 at 18:30 Morphine Sulfate (morphine) 2 mg Q4H PRN IV .SEVERE PAIN 7-10 Last administered on 11/11/18at 13:37; Admin Dose 2 MG; Start 11/04/18 at 18:30 Docusate Sodium (Colace) 100 mg Q12H PRN PO .CONSTIPATION; Start 11/04/18 at 18 :30 Magnesium Hydroxide (Milk Of Mag) 30 ml DAILY PRN PO .CONSTIPATION; Start 11/04/18 at 18:30 Pantoprazole (Protonix Tab) 40 mg DAILY@06 PO Last administered on 11/11/18at 06:00; Admin Dose 40 MG; Start 11/05/18 at 06:00 Enoxaparin Sodium (Lovenox) 40 mg DAILY SC Last administered on 11/11/18at 0 8:35; Admin Dose 40 MG; Start 11/05/18 at 09:00 Insulin Aspart (Novolog Insulin Pen) NOVOLOG *MILD* ALGORITHM WITH MEALS BEDTIME SC Last administered on 11/11/18at 11:55; Admin Dose 1 UNIT; Start 05/13 at 21:00 Miscellaneous Information 1 ea NOTE XX ; Start 11/04/18 at 19:30 Glucose (Glutose) 15 gm Q15M PRN PO DECREASED GLUCOSE; Start 11/04/18 at 19:30 Glucose (Glutose) 22.5 gm Q15M PRN PO DECREASED GLUCOSE; Start 11/04/18 at 19:30 Dextrose (D50w Syringe) 25 ml Q15M PRN IV DECREASED GLUCOSE; Start 11/04/18 at 19:30 Dextrose (D50w Syringe) 50 ml Q15M PRN IV DECREASED GLUCOSE; Start 11/04/18 at 19:30 Glucagon (Glucagen) 1 mg Q15M PRN IM DECREASED GLUCOSE; Start 11/04/18 at 19:30 Glucose (Glutose) 15 gm Q15M PRN BUCCAL DECREASED GLUCOSE; Start 11/04/18 at 19:30 Miscellaneous Information Patients own medicat... BID@10,16 XX ; Start 11/05/18 at 10:00 Insulin Glargine (Lantus) 14 units DAILY@0800 SC Last administered on 11/11/18at 08:36; Admin Dose 14 UNITS; Start 11/05/18 at 13:30 Terbinafine HCl (Lamisil) 250 mg BID PO Last administered on 11/11/18 08:33; Admin Dose 250 MG; Start 11/07/18 at 11:30; Stop 11/14/18 at 11:29 Amlodipine Besylate (Norvasc) 5 mg DAILY PO Last administered on 11/11/18 09:36; Admin Dose 5 MG; Start 11/11/18 at 09:30 Trimethoprim/ Sulfamethoxazole (Bactrim (Ds)) 1 tab BID PO Last administered on 11/11/18 09:35; Admin Dose 1 TAB; Start 11/11/18 at 09:30 Cephalexin (Keflex) 500 mg Q6 PO Last administered on 11/11/18 11:54; Admin Dose 500 MG; Start 11/11/18 at 12:00 HEIDY CORTEZ NP Nov 11, 2018 15:44
[2018-11-11 20:00] VITALS: BP 114/64; PULSE 71; RESP 18
[2018-11-12 02:00] VITALS: BP 150/67; PULSE 67; RESP 18
[2018-11-12] MEDS: CEPHALEXIN 500 MG CAP PO SCH ×4 (05:37→23:04)
[2018-11-12] MEDS: PANTOPRAZOLE (EC) 40 MG TAB PO SCH (05:37)
[2018-11-12] MEDS: INSULIN ASPART [NOVOLOG] 3 ML PEN SC SCH ×4 (08:00→20:27)
[2018-11-12 08:18] VITALS: BP 161/71; PULSE 63; RESP 17
[2018-11-12] MEDS: ENOXAPARIN 40 MG/0.4 ML SYG SC SCH (08:26)
[2018-11-12] MEDS: TRIMETHOPRIM/SULFAMETHOX (DS) TAB PO SCH ×2 (08:27→20:28)
[2018-11-12] MEDS: AMLODIPINE 5 MG TAB PO SCH (08:28)
[2018-11-12] MEDS: LISINOPRIL 20 MG TAB PO SCH (08:28)
[2018-11-12] MEDS: TERBINAFINE 250 MG TAB PO SCH ×2 (08:28→20:28)
[2018-11-12] MEDS: INSULIN GLARGINE [LANTus] (100 UNITS/ML) SYG SC SCH (08:29)
[2018-11-12] MEDS: morphine 2 MG INJ IV PRN (10:39)
[2018-11-12 14:00] VITALS: BP 116/56; PULSE 65; RESP 17
--- NOTE | 2018-11-12 14:13 | CONS ---
Assessment/Plan Assessment/Plan Hospital Course (Demo Recall) Alert feels better Antimicrobials: Vancomycin, Rocephin Lower extremity CT revealed ostial lysis of the toes and distal aspect of the fifth metatarsal with adjacent severe soft tissue swelling. Findings are concerning for osteomyelitis Physical examination: This is a well-nourished well-developed elderly white man who is alert in no distress. Head atraumatic normocephalic sclera nonicteric vehicle mucosa dry neck is supple chest rise symmetrical breath sounds clear. Heart: S1-S2. Abdomen soft bowel sounds present. Extremities: Right lower extremity with significant swelling erythema bruising above knee. Patient has a open wound on the calf Assessment: 1. S/p sepsis 2. Right lower extremity cellulitis, improving 3. Diabetes 4. MICHELLE Plan: Stable, ok dc on oral Bactrim and Keflex for 7 more days, continue compression dressings, follow at the wound clinic Consultation Date/Type/Reason Admit Date/Time Nov 04, 2018 at 18:28 Initial Consult Date Type of Consult id Date/Time of Note DATE: 11/12/18 TIME: 14:12 Exam/Review of Systems Exam Vitals Vital Signs Date Temp Pulse Resp B/P (MAP) Pulse Ox O2 O2 Flow FiO2 Time Delivery Rate 11/12/18 97.4 63 17 161/71 94 Room Air 08:18 (101) Intake and Output 11/11/18 11/11/18 11/12/18 1515:00 23:00 07:00 IntakeIntake Total 950 ml 700 ml OutputOutput Total 500 ml 200 ml BalanceBalance 450 ml 500 ml Results Result Diagram: 11/12/18 0501 11/12/18 0501 Results 24hrs Laboratory Tests Test 11/11/18 17:08 11/11/18 20:57 11/12/18 05:01 11/12/18 08:11 Bedside Glucose 110 170 110 White Blood Count 11.2 H Red Blood Count 3.76 L Hemoglobin 12.0 L Hematocrit 35.7 L Mean Corpuscular 94.9 Volume Mean Corpuscular 31.9 Hemoglobin Mean Corpuscular 33.6 Hemoglobin Concent Red Cell 14.7 H Distribution Width Platelet Count 160 Mean Platelet Volume 11.5 H Immature 3.700 H Granulocytes % Neutrophils % 71.2 Lymphocytes % 13.4 L Monocytes % 8.4 Eosinophils % 2.3 Basophils % 1.0 Nucleated Red Blood 0.0 Cells % Immature 0.420 H Granulocytes # Neutrophils # 8.0 H Lymphocytes # 1.5 Monocytes # 0.9 Eosinophils # 0.3 Basophils # 0.1 Nucleated Red Blood 0.0 Cells # Sodium Level 140 Potassium Level 4.6 Chloride Level 110 Carbon Dioxide Level 25 Anion Gap 5 Blood Urea Nitrogen 17 Creatinine 1.00 Est Glomerular > 60 Filtrat Rate mL/min Glucose Level 119 Calcium Level 7.9 L Phosphorus Level 3.7 Magnesium Level 1.8 Test 11/12/18 12:15 Bedside Glucose 141 Medications Medication Current Medications Lisinopril (Zestril) 40 mg DAILY PO Last administered on 11/12/18at 08:28; Admin Dose 40 MG; Start 11/05/18 at 09:00 IV Flush (NS 3 ml) 3 ml PER PROTOCOL IV ; Start 11/04/18 at 18:30 Ondansetron HCl (Zofran Inj) 4 mg Q6H PRN IV NAUSEA/VOMITING; Start 11/04/18 at 18:30 Acetaminophen (Tylenol Tab) 650 mg Q6H PRN PO .PAIN 1-3 OR TEMP; Start 11/04/18 at 18:30 Acetaminophen/ Hydrocodone Bitart ([place] (5/325)) 1 tab Q6H PRN PO .MOD PAIN 4- 6 Last administered on 11/10/18at 20:01; Admin Dose 1 TAB; Start 11/04/18 at 18:30 Acetaminophen/ Hydrocodone Bitart ([place] (5/325)) 2 tab Q6H PRN PO .SEVERE PAIN 7-10 Last administered on 11/07/18at 08:37; Admin Dose 2 TAB; Start 11/04/18 at 18:30 Morphine Sulfate (morphine) 2 mg Q4H PRN IV .SEVERE PAIN 7-10 Last administered on 11/12/18at 10:39; Admin Dose 2 MG; Start 11/04/18 at 18:30 Docusate Sodium (Colace) 100 mg Q12H PRN PO .CONSTIPATION; Start 11/04/18 at 18:30 Magnesium Hydroxide (Milk Of Mag) 30 ml DAILY PRN PO .CONSTIPATION; Start 11/04/18 at 18:30 Pantoprazole (Protonix Tab) 40 mg DAILY@06 PO Last administered on 11/12/18at 05:37; Admin Dose 40 MG; Start 11/05/18 at 06:00 Enoxaparin Sodium (Lovenox) 40 mg DAILY SC Last administered on 11/12/18at 08:26; Admin Dose 40 MG; Start 11/05/18 at 09:00 Insulin Aspart (Novolog Insulin Pen) NOVOLOG *MILD* ALGORITHM WITH MEALS BEDTIME SC Last administered on 11/12/18at 12:36; Admin Dose 1 UNIT; Start 11/04/18 at 21:00 Miscellaneous Information 1 ea NOTE XX ; Start 11/04/18 at 19:30 Glucose (Glutose) 15 gm Q15M PRN PO DECREASED GLUCOSE; Start 11/04/18 at 19:30 Glucose (Glutose) 22.5 gm Q15M PRN PO DECREASED GLUCOSE; Start 11/04/18 at 19:30 Dextrose (D50w Syringe) 25 ml Q15M PRN IV DECREASED GLUCOSE; Start 11/04/18 at 19:30 Dextrose (D50w Syringe) 50 ml Q15M PRN IV DECREASED GLUCOSE; Start 11/04/18 at 19:30 Glucagon (Glucagen) 1 mg Q15M PRN IM DECREASED GLUCOSE; Start 11/04/18 at 19:30 Glucose (Glutose) 15 gm Q15M PRN BUCCAL DECREASED GLUCOSE; Start 11/04/18 at 19:30 Miscellaneous Information Patients own medicat... BID@10,16 XX ; Start 11/05/18 at 10:00 Insulin Glargine (Lantus) 14 units DAILY@0800 SC Last administered on 11/12/18at 08:29; Admin Dose 14 UNITS; Start 11/05/18 at 13:30 Terbinafine HCl (Lamisil) 250 mg BID PO Last administered on 11/12/18at 08:28; Admin Dose 250 MG; Start 11/07/18 at 11:30; Stop 11/14/18 at 11:29 Amlodipine Besylate (Norvasc) 5 mg DAILY PO Last administered on 11/12/18at 08:28; Admin Dose 5 MG; Start 11/11/18 at 09:30 Trimethoprim/ Sulfamethoxazole (Bactrim (Ds)) 1 tab BID PO Last administered on 11/12/18at 08:27; Admin Dose 1 TAB; Start 11/11/18 at 09:30 Cephalexin (Keflex) 500 mg Q6 PO Last administered on 11/12/18at 12:35; Admin Dose 500 MG; Start 11/11/18 at 12:00 HEIDY CORTEZ NP Nov 12, 2018 14:13
--- NOTE | 2018-11-12 15:29 | PN ---
Date/Time of Note Date/Time of Note DATE: 11/12/18 TIME: 15:28 Objective Vitals Vital Signs Date Temp Pulse Resp B/P (MAP) Pulse Ox O2 O2 Flow FiO2 Time Delivery Rate 11/12/18 98.9 65 17 116/56 95 Room Air 14:00 (76) Intake and Output 11/11/18 11/11/18 11/12/18 1515:00 23:00 07:00 IntakeIntake Total 950 ml 700 ml OutputOutput Total 500 ml 200 ml BalanceBalance 450 ml 500 ml Results Result Diagram: 11/12/18 0501 11/12/18 0501 Medications Medications Current Medications Lisinopril (Zestril) 40 mg DAILY PO Last administered on 11/12/18at 08:28; Admin Dose 40 MG; Start 11/05/18 at 09:00 IV Flush (NS 3 ml) 3 ml PER PROTOCOL IV ; Start 11/04/18 at 18:30 Ondansetron HCl (Zofran Inj) 4 mg Q6H PRN IV NAUSEA/VOMITING; Start 11/04/18 at 18:30 Acetaminophen (Tylenol Tab) 650 mg Q6H PRN PO .PAIN 1-3 OR TEMP; Start 11/04/18 at 18:30 Acetaminophen/ Hydrocodone Bitart ([place] (5/325)) 1 tab Q6H PRN PO .MOD PAIN 4- 6 Last administered on 11/10/18at 20:01; Admin Dose 1 TAB; Start 11/04/18 at 18:30 Acetaminophen/ Hydrocodone Bitart ([place] (5/325)) 2 tab Q6H PRN PO .SEVERE PAIN 7-10 Last administered on 11/07/18at 08:37; Admin Dose 2 TAB; Start 11/04/18 at 18:30 Morphine Sulfate (morphine) 2 mg Q4H PRN IV .SEVERE PAIN 7-10 Last administered on 11/12/18at 10:39; Admin Dose 2 MG; Start 11/04/18 at 18:30 Docusate Sodium (Colace) 100 mg Q12H PRN PO .CONSTIPATION; Start 11/04/18 at 18:30 Magnesium Hydroxide (Milk Of Mag) 30 ml DAILY PRN PO .CONSTIPATION; Start 11/04/18 at 18:30 Pantoprazole (Protonix Tab) 40 mg DAILY@06 PO Last administered on 11/12/18at 05:37; Admin Dose 40 MG; Start 11/05/18 at 06:00 Enoxaparin Sodium (Lovenox) 40 mg DAILY SC Last administered on 11/12/18at 08:26; Admin Dose 40 MG; Start 11/05/18 at 09:00 Insulin Aspart (Novolog Insulin Pen) NOVOLOG *MILD* ALGORITHM WITH MEALS B EDTIME SC Last administered on 11/12/18at 12:36; Admin Dose 1 UNIT; Start 11/04/18 at 21:00 Miscellaneous Information 1 ea NOTE XX ; Start 11/04/18 at 19:30 Glucose (Glutose) 15 gm Q15M PRN PO DECREASED GLUCOSE; Start 11/04/18 at 19:30 Glucose (Glutose) 22.5 gm Q15M PRN PO DECREASED GLUCOSE; Start 11/04/18 at 19:30 Dextrose (D50w Syringe) 25 ml Q15M PRN IV DECREASED GLUCOSE; Start 11/04/18 at 19:30 Dextrose (D50w Syringe) 50 ml Q15M PRN IV DECREASED GLUCOSE; Start 11/04/18 at 19:30 Glucagon (Glucagen) 1 mg Q15M PRN IM DECREASED GLUCOSE; Start 11/04/18 at 19:30 Glucose (Glutose) 15 gm Q15M PRN BUCCAL DECREASED GLUCOSE; Start 11/04/18 at 19:30 Miscellaneous Information Patients own medicat... BID@10,16 XX ; Start 11/05/18 at 10:00 Insulin Glargine (Lantus) 14 units DAILY@0800 SC Last administered on 11/12/18at 08:29; Admin Dose 14 UNITS; Start 11/05/18 at 13:30 Terbinafine HCl (Lamisil) 250 mg BID PO Last administered on 11/12/18 08:28; Admin Dose 250 MG; Start 11/07/18 at 11:30; Stop 11/14/18 at 11:29 Amlodipine Besylate (Norvasc) 5 mg DAILY PO Last administered on 11/12/18at 08:28; Admin Dose 5 MG; Start 11/11/18 at 09:30 Trimethoprim/ Sulfamethoxazole (Bactrim (Ds)) 1 tab BID PO Last administered on 11/12/18at 08:27; Admin Dose 1 TAB; Start 11/11/18 at 09:30 Cephalexin (Keflex) 500 mg Q6 PO Last administered on 11/12/18at 12:35; Admin Dose 500 MG; Start 11/11/18 at 12:00 VTE Prophylaxis Risk score (from Ns)>0 risk: 6 SCD applied (from [facility]): No SCD contraindication: other Lines/Catheters IV Catheter Type: Cardona in Place: No Assessment/Plan Hospital Course Subjective Patient states that his leg continues to improve Objective Physical exam General: Patient is laying in bed and answers questions appropriately Mentation: Patient is alert and oriented 4, Head: Normocephalic atraumatic Eyes: EOMI, pupils reactive to light Neck: Supple, nontender, midline Respiratory: Clear to auscultation bilaterally Cardiovascular: regular rate, no obvious murmurs Gastrointestinal: non-tender to palpation, bowel sounds heard. Neurological: Moves all extremities spontaneously Skin: Right lower extremity erythematous Assessment and plan Lower extremity cellulitis -Now changing antibiotics to oral -Infectious disease on board -MRI not conclusive for osteomyelitis -Resolving Diabetes mellitus type 2 -Insulin while in house Hypertension -Continue home medications History of hepatitis C -Follow-up outpatient with gastroenterology Early cirrhosis -Found on ultrasound -Please follow-up with gastroenterology in the outpatient setting, discussed this with patient Onychomycosis -Continue medication -Antifungal Chronic podiatry issues -Podiatry consulted, patient will see psychology department chair in the outpatient setting for chronic issues Disposition -Very mild elevation in wbc after switching patient to oral antibiotics, will monitor for 1 more day and if WBC is stable, will discharge tomorrow. DIANA DEAL Nov 12, 2018 15:29
[2018-11-12 20:00] VITALS: BP 130/62; PULSE 63; RESP 18
[2018-11-13 02:00] VITALS: BP 136/64; PULSE 61; RESP 18
[2018-11-13] MEDS: PANTOPRAZOLE (EC) 40 MG TAB PO SCH (05:35)
[2018-11-13] MEDS: CEPHALEXIN 500 MG CAP PO SCH ×2 (05:35→11:47)
[2018-11-13] MEDS: INSULIN ASPART [NOVOLOG] 3 ML PEN SC SCH ×2 (07:43→11:46)
[2018-11-13] MEDS: ENOXAPARIN 40 MG/0.4 ML SYG SC SCH (08:06)
[2018-11-13] MEDS: INSULIN GLARGINE [LANTus] (100 UNITS/ML) SYG SC SCH (08:06)
[2018-11-13] MEDS: TRIMETHOPRIM/SULFAMETHOX (DS) TAB PO SCH (08:07)
[2018-11-13] MEDS: TERBINAFINE 250 MG TAB PO SCH (08:07)
[2018-11-13] MEDS: LISINOPRIL 20 MG TAB PO SCH (08:10)
[2018-11-13 08:11] VITALS: BP 164/70; PULSE 65; RESP 18
[2018-11-13] MEDS: HYDROCODONE/APAP (5/325) TAB PO PRN (08:11)
[2018-11-13] MEDS: AMLODIPINE 5 MG TAB PO SCH (08:11)
--- NOTE | 2018-11-13 11:18 | CONS ---
Assessment/Plan Assessment/Plan Hospital Course (Demo Recall) No events, looks comfortable, no fevers Antimicrobials: Bactrim Keflex Lower extremity CT revealed ostial lysis of the toes and distal aspect of the fifth metatarsal with adjacent severe soft tissue swelling. Findings are concerning for osteomyelitis Physical examination: This is a well-nourished well-developed elderly white man who is alert in no distress. Head atraumatic normocephalic sclera nonicteric vehicle mucosa dry neck is supple chest rise symmetrical breath sounds clear. Heart: S1-S2. Abdomen soft bowel sounds present. Extremities: Right lower extremity with significant swelling erythema bruising above knee. Patient has a open wound on the calf Assessment: 1. S/p sepsis 2. Right lower extremity cellulitis, improving 3. Diabetes 4. MICHELLE Plan: Stable, pending dc home on oral abx, pt to continue compression therapy at home Consultation Date/Type/Reason Admit Date/Time Nov 04, 2018 at 18:28 Initial Consult Date Type of Consult id Date/Time of Note DATE: 11/13/18 TIME: 11:16 Exam/Review of Systems Exam Vitals Vital Signs Date Temp Pulse Resp B/P (MAP) Pulse Ox O2 O2 Flow FiO2 Time Delivery Rate 11/13/18 98.2 65 18 164/70 95 Room Air 08:11 (101) Intake and Output 11/12/18 11/12/18 11/13/18 1515:00 23:00 07:00 IntakeIntake Total 600 ml 200 ml 500 ml OutputOutput Total 200 ml 800 ml BalanceBalance 400 ml 200 ml -300 ml Results Result Diagram: 11/13/18 0530 11/13/18 0530 Results 24hrs Laboratory Tests Test 11/12/18 12:15 11/12/18 17:17 11/12/18 20:26 11/13/18 05:30 Bedside Glucose 141 119 132 White Blood Count 8.5 # Red Blood Count 3.63 L Hemoglobin 11.6 L Hematocrit 35.6 L Mean Corpuscular 98.1 Volume Mean Corpuscular 32.0 Hemoglobin Mean Corpuscular 32.6 Hemoglobin Concent Red Cell 14.8 H Distribution Width Platelet Count 137 L Mean Platelet Volume 11.9 H Immature 2.400 H Granulocytes % Neutrophils % 66.7 Lymphocytes % 17.8 Monocytes % 8.7 Eosinophils % 3.3 Basophils % 1.1 Nucleated Red Blood 0.0 Cells % Immature 0.200 H Granulocytes # Neutrophils # 5.6 Lymphocytes # 1.5 Monocytes # 0.7 Eosinophils # 0.3 Basophils # 0.1 Nucleated Red Blood 0.0 Cells # Sodium Level 137 Potassium Level 5.0 Chloride Level 110 Carbon Dioxide Level 22 Anion Gap 5 Blood Urea Nitrogen 18 Creatinine 1.01 Est Glomerular > 60 Filtrat Rate mL/min Glucose Level 108 Calcium Level 7.7 L Phosphorus Level 3.8 Magnesium Level 1.9 Test 11/13/18 07:42 Bedside Glucose 116 Medications Medication Current Medications Lisinopril (Zestril) 40 mg DAILY PO Last administered on 11/13/18at 08:10; Admin Dose 40 MG; Start 11/05/18 at 09:00 IV Flush (NS 3 ml) 3 ml PER PROTOCOL IV ; Start 11/04/18 at 18:30 Ondansetron HCl (Zofran Inj) 4 mg Q6H PRN IV NAUSEA/VOMITING; Start 11/04/18 at 18:30 Acetaminophen (Tylenol Tab) 650 mg Q6H PRN PO .PAIN 1-3 OR TEMP; Start 11/04/18 at 18:30 Acetaminophen/ Hydrocodone Bitart ([place] (5/325)) 1 tab Q6H PRN PO .MOD PAIN 4- 6 Last administered on 11/10/18at 20:01; Admin Dose 1 TAB; Start 11/04/18 at 18:30 Acetaminophen/ Hydrocodone Bitart ([place] (5/325)) 2 tab Q6H PRN PO .SEVERE PAIN 7-10 Last administered on 11/13/18at 08:11; Admin Dose 2 TAB; Start 11/04/18 at 18:30 Morphine Sulfate (morphine) 2 mg Q4H PRN IV .SEVERE PAIN 7-10 Last administered on 11/12/18at 10:39; Admin Dose 2 MG; Start 11/04/18 at 18:30 Docusate Sodium (Colace) 100 mg Q12H PRN PO .CONSTIPATION; Start 11/04/18 at 18:30 Magnesium Hydroxide (Milk Of Mag) 30 ml DAILY PRN PO .CONSTIPATION; Start 11/04/18 at 18:30 Pantoprazole (Protonix Tab) 40 mg DAILY@06 PO Last administered on 11/13/18at 05:35; Admin Dose 40 MG; Start 11/05/18 at 06:00 Enoxaparin Sodium (Lovenox) 40 mg DAILY SC Last administered on 11/13/18at 08:06; Admin Dose 40 MG; Start 11/05/18 at 09:00 Insulin Aspart (Novolog Insulin Pen) NOVOLOG *MILD* ALGORITHM WITH MEALS BEDTIME SC Last administered on 11/12/18at 12:36; Admin Dose 1 UNIT; Start 11/04/18 at 21:00 Miscellaneous Information 1 ea NOTE XX ; Start 11/04/18 at 19:30 Glucose (Glutose) 15 gm Q15M PRN PO DECREASED GLUCOSE; Start 11/04/18 at 19:30 Glucose (Glutose) 22.5 gm Q15M PRN PO DECREASED GLUCOSE; Start 11/04/18 at 19:30 Dextrose (D50w Syringe) 25 ml Q15M PRN IV DECREASED GLUCOSE; Start 11/04/18 at 19:30 Dextrose (D50w Syringe) 50 ml Q15M PRN IV DECREASED GLUCOSE; Start 11/04/18 at 19:30 Glucagon (Glucagen) 1 mg Q15M PRN IM DECREASED GLUCOSE; Start 11/04/18 at 19:30 Glucose (Glutose) 15 gm Q15M PRN BUCCAL DECREASED GLUCOSE; Start 11/04/18 at 19:30 Miscellaneous Information Patients own medicat... BID@10,16 XX ; Start 11/05/18 at 10:00 Insulin Glargine (Lantus) 14 units DAILY@0800 SC Last administered on 11/13/18at 08:06; Admin Dose 14 UNITS; Start 11/05/18 at 13:30 Terbinafine HCl (Lamisil) 250 mg BID PO Last administered on 11/13/18at 08:07; Admin Dose 250 MG; Start 11/07/18 at 11:30; Stop 11/14/18 at 11:29 Amlodipine Besylate (Norvasc) 5 mg DAILY PO Last administered on 11/13/18at 08:11; Admin Dose 5 MG; Start 11/11/18 at 09:30 Trimethoprim/ Sulfamethoxazole (Bactrim (Ds)) 1 tab BID PO Last administered on 11/13/18at 08:07; Admin Dose 1 TAB; Start 11/11/18 at 09:30 Cephalexin (Keflex) 500 mg Q6 PO Last administered on 11/13/18at 05:35; Admin Dose 500 MG; Start 11/11/18 at 12:00 HEIDY CORTEZ NP Nov 13, 2018 11:18
[2018-11-13] MEDS ORDERED: AMLO-147 PO (11:50)
[2018-11-13] MEDS ORDERED: CEPH500C PO (11:50)
[2018-11-13] MEDS ORDERED: SULF-182 PO (11:50)
[2018-11-13] MEDS ORDERED: TERB250T13 PO (11:50)
--- NOTE | 2018-11-13 11:56 | PDOCDIS ---
Discharge Instructions CONDITION [id number] Patient Condition: [id number] Stable FOLLOW UP/APPOINTMENTS Follow-up Plan 1. Please continue all antibiotics given at discharge 2. Please follow-up with your primary care provider as soon as possible to get blood work done immediately as your potassium may be affected by the antibiotics, currently you are borderline normal to high at 5.0 3. Please note there is new blood pressure medication, continue to take your blood pressure readings, please do not take your new blood pressure medication, amlodipine if your blood pressure is less than 120 (top number) on a consistent basis DIANA DEAL Nov 13, 2018 11:55
[2018-11-13] MEDS ORDERED: AMLODIPINE 5 MG TAB PO ONE (12:00)
[2018-11-13] MEDS ORDERED: SODIUM POLYSTYRENE 15 GM KIT (POWDER + SORBITOL) PO ONE (12:00)
--- NOTE | 2018-11-13 12:00 | DS ---
Date/Time of Note Date/Time of Note DATE: 11/13/18 TIME: 11:59 Discharge Summary Admission/Discharge Info Admit Date/Time Nov 04, 2018 at 18:28 Discharge Date/Time Patient Condition: Stable Hospital Course Patient is a male with a past medical history significant for hypertension, diabetes mellitus type 2, early cirrhosis and hepatitis C who presents to [facility] for lower extremity cellulitis. Patient was seen by infectious disease as well as podiatry and patient was placed on appropriate antibiotics. Patient will now be discharged on appropriate oral antibiotics as he has significantly improved and able to ambulate. Patient will be sent home with home health physical therapy, home health wound care as well as new prescriptions. Patient was instructed to get repeat blood work within a few days as his potassium is creeping up slightly and Bactrim does have a side effect of possible hyperkalemia. Patient states that he will also follow-up with a player services representative and already has a referral for his history of hepatitis C and his newfound early cirrhosis on ultrasound. Patient is also to continue his previous medications and his blood pressure medications have been adjusted with strict instructions to watch his blood pressure as some of this issue is likely secondary to current pain and inflammation from his cellulitis that is resolving. Discharge diagnosis Lower extremity cellulitis Diabetes mellitus type 2 Hypertension History of hepatitis C Early cirrhosis onychomycosis Chronic podiatry issues Home Meds Active Scripts Amlodipine Besylate* (Amlodipine Besylate*) 10 Mg Tablet, 10 MG PO DAILY for 30 Days, #30 TAB Prov:DIANA DEAL 11/13/18 Terbinafine Hcl* (Terbinafine Hcl*) 250 Mg Tablet, 250 MG PO BID for 1 Day, #2 TAB Prov:DIANA DEAL 11/13/18 Sulfamethoxazole/Trimethoprim (Sulfamethoxazole-Tmp Ds Tablet) 1 Each Tablet, 1 TAB PO BID for 7 Days, #14 TAB Prov:DIANA DEAL 11/13/18 Cephalexin* (Cephalexin*) 500 Mg Capsule, 500 MG PO Q6 for 7 Days, #28 CAP Prov:DIANA DEAL 11/13/18 Reported Medications Lisinopril* (Lisinopril*) 40 Mg Tablet, 40 MG PO DAILY, #30 TAB 11/04/18 Sitagliptin Phos/Metformin HCl (Janumet 50-1,000 mg Tablet) 1 Each Tablet, 1 EACH PO BID, TAB 11/04/18 Follow-up Plan 1. Please continue all antibiotics given at discharge 2. Please follow-up with your primary care provider as soon as possible to get blood work done immediately as your potassium may be affected by the antibiotics, currently you are borderline normal to high at 5.0 3. Please note there is new blood pressure medication, continue to take your blood pressure readings, please do not take your new blood pressure medication, amlodipine if your blood pressure is less than 120 (top number) on a consistent basis Primary Care Provider Not On Staff Doctor Time spent on discharge: > 30 minutes Pending Labs Laboratory Tests Test 11/12/18 12:15 11/12/18 17:17 11/12/18 20:26 11/13/18 05:30 Bedside 141 119 132 Glucose mg/dL (70-220) mg/dL (70-220) mg/dL (70-220) White Blood 8.5 Count 10^3/ul (4.8-1 0.8) Red Blood 3.63 Count 10^6/ul (4.70- 6.10) Hemoglobin 11.6 g/dl (14.0-18. 0) Hematocrit 35.6 % (42.0-52.0) Mean 98.1 Corpuscular fl (82.0-101.0 Volume ) Mean 32.0 Corpuscular pg (29.0-33.0) Hemoglobin Mean 32.6 Corpuscular g/dl (32.0-37. Hemoglobin Conc 0) ent Red Cell 14.8 Distribution % (11.5-14.5) Width Platelet Count 137 10^3/UL (140-4 15) Mean Platelet 11.9 Volume fl (7.4-10.4) Immature 2.400 Granulocytes % % (0.001-0.429 ) Neutrophils % 66.7 % (39.0-77.0) Lymphocytes % 17.8 % (15.0-51.0) Monocytes % 8.7 % (0.0-11.0) Eosinophils % 3.3 % (0.0-7.0) Basophils % 1.1 % (0.0-2.0) Nucleated Red 0.0 Blood Cells % /100WBC (0.0-0 .0) Immature 0.200 Granulocytes # 10^3/ul (0.0-0 .031) Neutrophils # 5.6 10^3/ul (1.6-7 .5) Lymphocytes # 1.5 10^3/ul (0.8-2 .9) Monocytes # 0.7 10^3/ul (0.3-0 .9) Eosinophils # 0.3 10^3/ul (0.0-0 .5) Basophils # 0.1 10^3/ul (0.0-0 .1) Nucleated Red 0.0 Blood Cells # 10^3/ul (0.0-0 .0) Sodium Level 137 mmol/L (135-14 4) Potassium 5.0 Level mmol/L (3.5-5. 1) Chloride Level 110 mmol/L (97-110 ) Carbon Dioxide 22 Level mmol/L (21-31) Anion Gap 5 (5-13) Blood Urea 18 Nitrogen mg/dl (7-20) Creatinine 1.01 mg/dl (0.61-1. 24) Est Glomerular > 60 Filtrat mL/min (>60) Rate mL/min Glucose Level 108 mg/dl (70-220) Calcium Level 7.7 mg/dl (8.4-10. 2) Phosphorus 3.8 Level mg/dl (2.5-4.9 ) Magnesium 1.9 Level mg/dl (1.7-2.5 ) Test 11/13/18 07:42 11/13/18 11:45 Bedside 116 96 Glucose mg/dL (70-220) mg/dL (70-220) DIANA DEAL Nov 13, 2018 12:00
[2018-11-14] MEDS ORDERED: AMLODIPINE 10 MG TAB PO SCH (09:00)
== END 2018-11-13 14:30 | disposition home health service (06) | DRG 872 ==
LOC: E/R 13:56 → PP2 18:28
PROVIDERS: ADMIT Internal Medicine; ATTEND Internal Medicine
DX: A41.9 Sepsis, unspecified organism (principal); L03.115 Cellulitis of right lower limb; N17.9 Acute kidney failure, unspecified; M86.171 Other acute osteomyelitis, right ankle and foot; E11.621 Type 2 diabetes mellitus with foot ulcer; D69.6 Thrombocytopenia, unspecified; L97.519 Non-pressure chronic ulcer of other part of right foot with unspecified severity; K74.60 Unspecified cirrhosis of liver; I10 Essential (primary) hypertension; B18.2 Chronic viral hepatitis C; B35.1 Tinea unguium; Z79.4 Long term (current) use of insulin
CPT/HCPCS: 36415; 73590; 73630; 73700; 73718; 76705; 80048; 80053; 80061; 80202; 82962; 83036; 83605; 83735; 84100; 85025; 85651; 86140; 86803; 87081; 87340; 93005; 93971; 96374; 96375; J0696; J1650; J1815; J2270; J2405; J2543; J3370; J7030; J7040; J7050